=== PATIENT | male | born 1940 | race Caucasian/White ===

== ENCOUNTER → 2017-08-01 10:26 | Outpatient (CLI) | payer MEDICARE, OTHER, SELFPAY ==
[2017-08-01 12:26] LABS: PSA,Total- Diagnostic 0.97 ng/mL (0.0-4.0)
== END ==
PROVIDERS: Family Provider Family Medicine; PCP Family Medicine; Visit Provider Radiology Radiation Oncology
DX: Z85.46 Personal history of malignant neoplasm of prostate (principal)
CPT/HCPCS: 36415; 84153

== ENCOUNTER → 2019-10-04 07:47 | Outpatient (CLI) | payer MEDICARE, OTHER, SELFPAY ==
--- NOTE | 2019-10-04 08:00 | NM_ITS ---
CLINICAL: 79-year-old male with reported history of primary prostate carcinoma with elevation of the serum PSA level. WHOLE BODY 99m Tc MDP RADIONUCLIDE BONE SCINTIGRAPHY COMPARISON: None available FINDINGS: Following the intravenous administration of 26.0 mCi of 99m Tc MDP, whole body bone images reveal: 1. Increased radiopharmaceutical concentration is multifocally-heterogeneously defined throughout the axial skeletal structures, too many to individually articulate to include the right iliac crest, bilateral posterior ilium, multiple bilateral ribs, the left coracoid process and focally apparent in the left proximal humeral metaphysis. 2. Enhanced tracer distribution is defined in the first lumbar vertebra anteriorly-posteriorly on the left, acromioclavicular and sternoclavicular compartments of both shoulders, the right knee, bilateral hands. 3. The remaining skeletal structures are scintigraphically unremarkable with right kidney and urinary bladder activity identified. The left kidney is scintigraphically absent. NM/Bone Scan Whole Body IMPRESSION: 1. The increase in radiopharmaceutical concentration multifocally apparent in the axial skeleton and left proximal humerus is commensurate with osseous metastatic disease. 2. Degenerative arthritis appears expressed in the first lumbar vertebra, bilateral shoulders, right knee, both hands. Electronically Signed: Brant Pacheco DO at 20:32 EDT Tel , Service support ,
== END ==
PROVIDERS: PCP Family Medicine; Referring Provider Radiology Radiation Oncology; Visit Provider Radiology Radiation Oncology
DX: R97.20 Elevated prostate specific antigen [PSA] (principal); Z85.46 Personal history of malignant neoplasm of prostate
CPT/HCPCS: 78306

== ENCOUNTER → 2019-10-17 16:53 | Outpatient (CLI) | payer MEDICARE, OTHER, SELFPAY ==
[2019-10-17 18:21] LABS: Anion Gap 5 (5-15); BUN 24 mg/dL (7-18); Calcium,Total 9.1 mg/dL (8.5-10.1); Chloride 105 mmol/L (98-107); Creatinine, Serum 1.41 mg/dL (0.70-1.30); EST Glomerular Filtration Rate 52 mL/min (>60); Est Glom Filt Rate - Afr Amer 62 mL/min (>60); Glucose 86 mg/dL (74-106); Potassium 4.5 mmol/L (3.5-5.1); Sodium Level 137 mmol/L (136-145)
== END ==
PROVIDERS: PCP Family Medicine; Referring Provider Urology; Visit Provider Urology
DX: C61 Malignant neoplasm of prostate (principal)
CPT/HCPCS: 36415; 80048; 84153

== ENCOUNTER → 2019-10-24 12:41 | Outpatient (CLI) | payer MEDICARE, OTHER, SELFPAY ==
--- NOTE | 2019-10-24 12:45 | CT_ITS ---
STUDY: CT ABDOMEN AND PELVIS WITH AND WITHOUT CONTRAST REASON FOR EXAM: Male, 79 years old. PROSTATE CA, HX-RENAL CA-LT NEPHRECTOMY, PARTIAL COLECTOMY, HERNIA REPAIR X 3 RADIATION DOSAGE (If Supplied By Facility): CTDIvol = ( 10.21 ) mGy, DLP = ( 1102.07 ) mGycm TECHNIQUE: Transaxial images were obtained from the dome of the diaphragm to the symphysis pubis without oral contrast. IV 75mL [id number]-300 was administered. Sagittal and coronal images were reconstructed. Individualized dose optimization techniques were used for this CT. COMPARISON: Comparison is made with prior examination dated 04/18/2011. FINDINGS: Minimal increased markings at the lung bases suggestive of a minimal bibasilar atelectasis and/or mild scarring. Coronary artery calcification. Scattered calcified hepatic granulomas. Stable scattered subcentimeter hepatic cysts. Normal gallbladder and extrahepatic biliary system. There is a benign calcified granuloma of the spleen. Normal pancreas. Normal bilateral adrenal glands. There is a 5.1 cm x 4.8 cm cyst in the medial inferior aspect of the right kidney. Also evidence of a 3.1 cm x 2.57 m cyst in the lateral inferior aspect of the right kidney is also evidence of a right parapelvic cyst. The patient is status post left nephrectomy. Normal visualized stomach. Normal small intestine. There are scattered colonic diverticula consistent with diverticulosis. The appendix is visualized and appears normal. There is diffuse atherosclerotic calcification of the abdominal aorta and major visceral branches, without a demonstrated aneurysm. Normal inferior vena cava. Normal retroperitoneum. Normal urinary bladder. The prostate is not enlarged. Metallic radiation seeds are seen within the prostate bed. Normal abdominal wall. There now is evidence of multiple small sclerotic metastatic deposits seen in the visualized axial skeleton as well as the pelvic bones. CT/CT Abd/Pelvis W/WO Contrast IMPRESSION: Stable examination except for multiple sclerotic metastatic deposits in the visualized axial and appendicular skeletons. Electronically Signed: Gary Albert, at 13:37 EDT , Service support ,
== END ==
PROVIDERS: PCP Family Medicine; Referring Provider Urology; Visit Provider Urology
DX: C61 Malignant neoplasm of prostate (principal)
CPT/HCPCS: 74178; Q9967

== ENCOUNTER → 2019-11-22 09:02 | Outpatient (CLI) | payer MEDICARE, OTHER, SELFPAY ==
[2019-11-22 10:25] LABS: PSA,Total- Diagnostic 5.14 ng/mL (0.0-4.0)
== END ==
PROVIDERS: PCP Family Medicine; Referring Provider Urology; Visit Provider Urology
DX: C61 Malignant neoplasm of prostate (principal)
CPT/HCPCS: 36415; 84153; 84403

== ENCOUNTER → 2020-01-10 09:39 | Outpatient (CLI) | payer MEDICARE, OTHER, SELFPAY ==
[2020-01-10 11:14] LABS: Hematocrit 42.3 % (40-54); Hemoglobin 13.3 g/dL (13.0-16.5); Mean Corp Hgb Conc 31.4 g/dL (32-36); Mean Corpuscular Hgb 30.2 pg (27.0-32.0); Mean Corpuscular Volume 96.1 fL (80-94); Mean Platelet Vol. 10.2 fl (6.2-12.0); Platelet Count 251 K/mm3 (150-450); RBC Distribution Width CV 13.2 % (11.6-14.6); RBC Distribution Width SD 46.9 fl (35.1-43.9); White Blood Count 5.4 K/mm3 (4.4-11.0)
[2020-01-10 11:40] LABS: Anion Gap 5 (5-15); BUN 29 mg/dL (7-18); BUN/Creat Ratio 22.1 RATIO (10-20); Calcium,Total 9.5 mg/dL (8.5-10.1); Chloride 109 mmol/L (98-107); Creatinine, Serum 1.31 mg/dL (0.70-1.30); EST Glomerular Filtration Rate 56 mL/min (>60); Est Glom Filt Rate - Afr Amer 68 mL/min (>60); Glucose 86 mg/dL (74-106); Potassium 4.3 mmol/L (3.5-5.1); Sodium Level 141 mmol/L (136-145)
== END ==
PROVIDERS: PCP Family Medicine; Referring Provider Urology; Visit Provider Urology
DX: R97.20 Elevated prostate specific antigen [PSA] (principal); C79.51 Secondary malignant neoplasm of bone
CPT/HCPCS: 36415; 80048; 84153; 85027

== ENCOUNTER → 2020-03-03 10:43 | Outpatient (CLI) | payer MEDICARE, OTHER, SELFPAY ==
[2020-03-03 12:06] LABS: PSA,Total- Diagnostic 0.14 ng/mL (0.0-4.0)
== END ==
PROVIDERS: PCP Family Medicine; Referring Provider Urology; Visit Provider Urology
DX: C61 Malignant neoplasm of prostate (principal)
CPT/HCPCS: 36415; 84153

== ENCOUNTER → 2020-08-18 14:21 | Outpatient (CLI) | payer MEDICARE, OTHER, SELFPAY ==
[2020-08-18 14:47] LABS: Hematocrit 40.9 % (40-54); Hemoglobin 13.2 g/dL (13.0-16.5); Mean Corp Hgb Conc 32.3 g/dL (32-36); Mean Platelet Vol. 9.9 fl (6.2-12.0); Platelet Count 328 K/mm3 (150-450); RBC Distribution Width CV 13.2 % (11.6-14.6); RBC Distribution Width SD 46.5 fl (35.1-43.9); Red Blood Count 4.26 M/mm3 (4.6-6.2); White Blood Count 10.4 K/mm3 (4.4-11.0)
[2020-08-18 15:20] LABS: Anion Gap 6 (5-15); BUN 26 mg/dL (7-18); BUN/Creat Ratio 19.7 RATIO (10-20); Calcium,Total 9.5 mg/dL (8.5-10.1); Chloride 107 mmol/L (98-107); Creatinine, Serum 1.32 mg/dL (0.70-1.30); EST Glomerular Filtration Rate 56 mL/min (>60); Est Glom Filt Rate - Afr Amer 67 mL/min (>60); Glucose 100 mg/dL (74-106); Potassium 4.2 mmol/L (3.5-5.1); Sodium Level 138 mmol/L (136-145)
== END ==
PROVIDERS: PCP Family Medicine; Referring Provider Urology; Visit Provider Urology
DX: C61 Malignant neoplasm of prostate (principal)
CPT/HCPCS: 36415; 80048; 84153; 85027

== ENCOUNTER 2020-09-16 13:04 | Emergency (ER) | payer MEDICARE, OTHER, SELFPAY ==
[2020-09-16 13:05] VITALS: PULSE 95; RESP 16; TEMP 36.7; O2SAT 95; BMI 27.0
[2020-09-16 13:11] VITALS: BP 140/64; PULSE 92; RESP 18; O2SAT 96
--- NOTE | 2020-09-16 13:54 | CT_ITS ---
STUDY: CT BRAIN WITHOUT CONTRAST REASON FOR EXAM: Male, 80 years old. Head injury RADIATION DOSAGE (If Supplied By Facility): CTDIvol = ( 44.99 ) mGy, DLP = ( 745.49 ) mGycm TECHNIQUE: Transaxial CT imaging of the brain was performed without administration of intravenous contrast material. Individualized dose optimization techniques were used for this CT. COMPARISON: No relevant priors. FINDINGS: Normal soft tissue structures. Normal calvarium. Normal size ventricles and extra-axial spaces for the patient''s age. Normal white matter tracts of the cerebral hemispheres. Normal basal ganglia and thalami. Normal brainstem. Normal cerebellum. There is no intracranial hemorrhage. There are no findings of an acute ischemic infarction. Normal visualized paranasal sinuses. There are atherosclerotic changes involving the carotid arteries. CT/Brain/Head without Contrast IMPRESSION: Normal unenhanced CT scan of the brain. Electronically Signed: Haily Cochran, at 14:30 EDT Tel , Service support ,
[2020-09-16 16:12] VITALS: BP 144/67; RESP 18
--- NOTE | 2020-09-16 18:55 | ED.VIS.FALL ---
HPI HPI - Fall History of Present Illness Chief Complaint: Fall Informant: patient Occured/Mechanism Occurred: Today Mechanism/Context: Yes same level fall and Yes cannot recall fall Usually ambulates: Cane Pain/Injury Pain Location: head Quality of Pain: Dull Associated Symptoms Associated Symptoms: Negative for Parasthesias and Loss of consciousness Narrative Narrative: Patient presents after a fall that occurred today. Patient is unsure what caused the fall. Patient has a history of dementia and is a poor historian. Patient thinks he just lost his balance and fell forward. Patient states that sometimes he walks with a cane. Patient denies any loss of consciousness. Patient denies any paresthesias or weakness. Patient hit his forehead. Currently, patient denies any pain. PFSH [facility] Medical History Dementia Depression MARIAJOSE (generalized anxiety disorder) Hyperlipidemia Osteoarthritis Prostate neoplasm Allergy/AdvReac Type Severity Reaction Status Date / Time No Known Allergies Allergy Verified 09/16/20 13:11 Social History Smoking Status: Never smoker ROS ROS ED Constitutional Constitutional ED: Denies chills or fever(s) Eyes Eyes: Denies blurry vision or change in vision ENT ENT ED: Denies rhinorrhea or sore throat Cardiovascular Cardiovascular: Denies chest pain or palpitations Respiratory/Chest Respiratory/Chest: Denies cough or dyspnea Gastrointestinal Gastrointestinal: Denies nausea or vomiting Genitourinary Genitourinary ED: Denies dysuria or hematuria Musculoskeletal Musculoskeletal: Denies back pain or neck pain Integumentary Reports Abrasions; Denies abscess or rash Neurologic Neurologic: Denies headache(s) or weakness Allergic/Immunologic Allergic/Immunologic ED: Denies mouth swelling or urticaria EXAM Physical Exam Const Vital Signs: 09/16/20 13:05 09/16/20 13:11 09/16/20 16:12 Temperature 98.0 F Temperature Source Temporal Pulse Rate 95 92 Respiratory Rate 16 18 18 Respiratory Effort Normal Respiratory Depth Normal Respiratory Pattern Normal Blood Pressure 140/64 H 144/67 H Blood Pressure Mean 89 Pulse Ox 95 96 Oxygen Delivery Method Room Air Room Air Positive well nourished and well developed General Appearance ED: well developed HEENT HEENT Narrative: There is a superficial abrasion over the frontal scalp. There is no bleeding. There is no bony crepitance or step-off. There is no hematoma. Eyes PERRL and EOMs intact bilaterally Neck full ROM and supple Resp normal respiratory effort and clear to auscultation bilaterally Cardio regular rate and regular rhythm GI non-tender Palpation: soft Neuro CN's II-XII intact bilaterally, moves all extremities, no focal motor deficits and no sensory deficits noted Sensorium / Orientation: alert and oriented to person MDM MDM MDM Narrative Medical decision making narrative: CT scan of the brain was obtained. There is no acute intracranial abnormality. Patient was instructed to use ice to the area. Patient was instructed to keep wound clean and dry. Patient was given head injury instructions. Patient was instructed to follow-up with his primary care physician in 5 to 7 days. All questions were answered. Radiography Diagnostic Testing: Radiology Impression Brain CT 09/16/20 13:54 IMPRESSION: Normal unenhanced CT scan of the brain. Electronically Signed: Haily Cochran, at 14:30 EDT Tel , Service support , Discharge Plan Triage Chief Complaint: Fall ED Provider: Colt Ray Dx/Rx/DC Orders Clinical Impression: Closed head injury Instructions: ED Head Injury (Adult) Primary Care Provider: Roberto Alva Referrals: Roberto Alva MD [Primary Care Provider] - 5-7 Days Disposition Disposition: Home, Self Care Discharge Date/Time: 09/16/20 16:13
== END 2020-09-16 16:13 | disposition home or self-care (01) ==
PROVIDERS: Emergency Provider Emergency Medicine; PCP Family Medicine
DX: S00.01XA Abrasion of scalp, initial encounter (principal); W01.0XXA Fall on same level from slipping, tripping and stumbling without subsequent striking against object, initial encounter; Y93.9 Activity, unspecified; Y92.9 Unspecified place or not applicable; E78.5 Hyperlipidemia, unspecified; F03.90 Unspecified dementia, unspecified severity, without behavioral disturbance, psychotic disturbance, mood disturbance, and anxiety; F32.9 Major depressive disorder, single episode, unspecified; M19.90 Unspecified osteoarthritis, unspecified site; F41.1 Generalized anxiety disorder; Z79.899 Other long term (current) drug therapy
CPT/HCPCS: 70450; 99284

== ENCOUNTER 2020-11-07 07:58 | Emergency (ER) | payer MEDICARE, OTHER, SELFPAY ==
[2020-11-07 07:59] VITALS: BP 157/81; PULSE 75; RESP 17; TEMP 36.8; O2SAT 94; BMI 26.5
[2020-11-07 08:07] VITALS: O2SAT 96
--- NOTE | 2020-11-07 08:28 | CT_ITS ---
EXAM: CT HEAD WITHOUT INTRAVENOUS CONTRAST CLINICAL INDICATION: Fall and struck head injury. TECHNIQUE: Multiple axial images were obtained of the head without intravenous contrast. This CT exam was performed using one or more of the following dose reduction techniques: automated exposure control, adjustment of the mA and/or kV according to patient size, and/or use of iterative reconstruction technique. This report was created using [employer] report generation technology. COMPARISON: CT head without contrast 09/16/2020. FINDINGS: BRAIN AND EXTRA-AXIAL SPACES: Unremarkable. No intra- or extra-axial hemorrhage. No evidence of acute infarct. No intracranial mass or mass effect. There is preservation of the pina/white matter interface. Posterior fossa structures are unremarkable. Ventricles are appropriate for age. No hydrocephalus. Basal cisterns are patent. BONES/JOINTS: Unremarkable. No discrete lytic or blastic abnormalities. VASCULATURE: Calcified plaques in the cavernous segments and supraclinoid segments of both internal carotid arteries. SINUSES: Unremarkable as visualized. Clear. MASTOID AIR CELLS: Unremarkable. Clear. ORBITS: Visualized globes, extraocular muscles, optic nerves and retrobulbar fat appear unremarkable. CT/Brain/Head without Contrast IMPRESSION: No acute findings in the head/brain and unchanged since 09/16/2020. Electronically Signed: Yifan Alva MD at 9:17 EDT , Service support ,
--- NOTE | 2020-11-07 08:28 | CT_ITS ---
We are attempting to reach an attending provider to discuss findings. An addendum with communication details will be sent when the communication is complete. EXAM: CT CERVICAL SPINE WITHOUT INTRAVENOUS CONTRAST CLINICAL INDICATION: Fall injury and struck head. TECHNIQUE: Helically acquired images were obtained of the cervical spine without intravenous contrast. 2D reformatted images were reviewed. This CT exam was performed using one or more of the following dose reduction techniques: automated exposure control, adjustment of the mA and/or kV according to patient size, and/or use of iterative reconstruction technique. This report was created using [employer] report [employer] technology. COMPARISON: None. FINDINGS: VERTEBRAE: Intact metallic plate and transfixing screws from prior ACDF of C3 down to C7. Minimal anterior wedging of T1 vertebral body is from remote injury. Multiple sclerotic bone metastatic disease throughout the osseous elements of the cervical spine and the included upper thoracic spine at T1, T2 on T3. DISCS/SPINAL CANAL/NEURAL FORAMINA: Pronounced degenerative narrowing of the predental space. Normal lateral atlantoaxial articulations. SOFT TISSUES: Unremarkable. No prevertebral soft tissue swelling. LYMPH NODES: Unremarkable. No cervical adenopathy. LUNG APICES: Unremarkable as visualized. Clear. CT/Spine Cervical without Contras IMPRESSION: 1. No CT evidence of acute fracture or malalignment of the cervical spine and the craniocervical junction. 2. Minimal old anterior wedge compression fracture of the T1 vertebral body. 3. Diffuse sclerotic bone metastatic disease throughout the cervical spine and the included upper thoracic spine. Please correlate with PSA findings. Whole-body scintigraphy will help determine the extent of skeletal metastases. Electronically Signed: Yifan Alva MD at 9:21 EDT , Service support ,
--- NOTE | 2020-11-07 08:41 | EDS_ITS ---
HPI HPI - Fall History of Present Illness Chief Complaint: Fall Informant: patient Narrative Narrative: Patient is a 80-year-old male with a past medical history of dementia who presents to the emergency department for unwitnessed fall. Patient does remember falling but cannot remember what caused him to fall. He denies losing consciousness but he did strike his head. He is a small hematoma to the top of his scalp. He denies any significant headache, vision change. He denies injuring anything else including any neck or back pain. No chest pain or shortness of breath. No abdominal pain or nausea/vomiting. No leg or arm pain. He is not on any blood thinning medications. [facility] Medical History Dementia Depression MARIAJOSE (generalized anxiety disorder) Hyperlipidemia Osteoarthritis Prostate neoplasm Home Medications diphenhydramine-acetaminophen [Acetaminophen PM] 1 tab PO QHS 11/07/20 [History Last Taken Unknown] enzalutamide [Xtandi] 40 mg PO DAILY 11/07/20 [History Last Taken Unknown] meloxicam 15 mg PO DAILY 11/07/20 [History Last Taken Unknown] sertraline 50 mg PO DAILY 11/07/20 [History Last Taken Unknown] Allergy/AdvReac Type Severity Reaction Status Date / Time No Known Allergies Allergy Verified 11/07/20 08:06 Social History Smoking Status: Never smoker ROS ROS ED Constitutional Constitutional ED: Denies chills or fever(s) Eyes Eyes: Denies change in vision ENT ENT ED: Denies epistaxis Cardiovascular Cardiovascular: Denies chest pain Respiratory/Chest Respiratory/Chest: Denies cough or dyspnea Gastrointestinal Gastrointestinal: Denies abdominal pain, nausea or vomiting Musculoskeletal Musculoskeletal: Denies back pain or neck pain Integumentary Denies rash Neurologic Neurologic: Denies dizziness, headache(s) or weakness EXAM Physical Exam Const Vital Signs: 11/07/20 07:59 11/07/20 08:07 11/07/20 10:46 Temperature 98.3 F Temperature Source Oral Pulse Rate 75 Respiratory Rate 17 16 Respiratory Effort Normal Non-Labored Respiratory Depth Normal Respiratory Pattern Normal Blood Pressure 157/81 H 143/78 H Blood Pressure Mean 106 Pulse Ox 94 96 98 Oxygen Delivery Method Room Air Room Air Positive well nourished and well developed General Appearance ED: well developed and NAD HEENT Reports normocephalic and moist mucous membranes HEENT Narrative: Small hematoma to apex of scalp. Eyes PERRL and EOMs intact bilaterally Neck supple General: Negative for tenderness Chest Wall inspection of chest normal Resp normal respiratory effort and clear to auscultation bilaterally Auscultation: Negative for rales, rhonchi or wheezes Cardio regular rate, regular rhythm and no murmurs GI normal to inspection, nondistended, normoactive bowel sounds and non-tender Palpation: soft; Negative for guarding or rebound tenderness present Extremity normal to inspection General Extremety ED: Negative for edema or tenderness General Extremity: Negative for edema Neuro Sensorium / Orientation: alert Motor Exam: strength 5/5 throughout Psych mental status grossly normal Skin no rashes or lesions noted MDM MDM MDM Narrative Medical decision making narrative: Patient presents to the emergency department for unwitnessed fall at intermediate. He does have a small hematoma to the top of his scalp so he was sent in for evaluation. Patient does not have any complaints. Will obtain CT scan of the head and cervical spine at this time. CT imaging did not reveal any acute traumatic findings. Unfortunately there was evidence of bony sclerotic lesions concerning for metastatic prostate cancer. He does have a history of prostate cancer. I spoke with the patient's power of employee benefits attorney, Boy his son who states that they did have done hormonal therapy but they were not going to do any radiation or chemo for him given his medical issues. They are to follow-up with his PCP. They can have a full body scan done if they want to evaluate the extent of this but again if they previously did not recommend significant treatment I doubt that they will perform any heroic measures at this time. This was all discussed with the son. I did inform the patient of the findings but I unsure of how much she comprehended of this given his dementia. He otherwise has remained stable throughout ED stay. Will transfer back to living facility at this time. Radiography Diagnostic Testing: Radiology Impression Brain CT 11/07/20 08:28 IMPRESSION: No acute findings in the head/brain and unchanged since 09/16/2020. Electronically Signed: Yifan Alva MD at 9:17 EDT , Service support , Cervical Spine CT 11/07/20 08:28 IMPRESSION: 1. No CT evidence of acute fracture or malalignment of the cervical spine and the craniocervical junction. 2. Minimal old anterior wedge compression fracture of the T1 vertebral body. 3. Diffuse sclerotic bone metastatic disease throughout the cervical spine and the included upper thoracic spine. Please correlate with PSA findings. Whole-body scintigraphy will help determine the extent of skeletal metastases. Electronically Signed: Yifan Alva MD at 9:21 EDT , Service support , ADDENDUM: 11/07/20 0930 IMPRESSION: 1. No CT evidence of acute fracture or malalignment of the cervical spine and the craniocervical junction. 2. Minimal old anterior wedge compression fracture of the T1 vertebral body. 3. Diffuse sclerotic bone metastatic disease throughout the cervical spine and the included upper thoracic spine. Please correlate with PSA findings. Whole-body scintigraphy will help determine the extent of skeletal metastases. N.B. : The above Results were Read Back by Yifan Alva MD to TATO JACOBSEN MD, and understanding confirmed on 11/07/2020 09:23:33 (ET). Electronically Signed: Yifan Alva MD at 9:21 EDT , Service support , Discharge Plan Triage Chief Complaint: Fall ED Provider: Tato Jacobsen Dx/Rx/DC Orders Clinical Impression: Closed head injury, Bony metastasis Instructions: ED Fall with Uncertain Cause Prescriptions: No Action meloxicam 15 mg Tablet 15 mg PO DAILY RF: 0 diphenhydramine-acetaminophen [Acetaminophen PM] 25-500 mg Tablet 1 tab PO QHS RF: 0 sertraline 50 mg tablet 50 mg PO DAILY RF: 0 Xtandi 40 mg Capsule 40 mg PO DAILY RF: 0 Primary Care Provider: Roberto Alva Referrals: Roberto Alva MD [Primary Care Provider] - 2 Days Disposition Disposition: Home, Self Care Discharge Date/Time: 11/07/20 10:58
[2020-11-07 10:46] VITALS: BP 143/78; RESP 16; O2SAT 98
--- NOTE | 2020-11-07 10:55 | ED.RN ---
PT AND PT FAMILY MEMBER EDUCATED ON WRITTEN AND VERBAL DISCHARGE INSTRUCTIONS. THIS RN ATTEMPTED TO CALL REPORT TO [facility], WAS ON HOLD FOR 5 MIN. NOT ABLE TO GIVE D/C, REPORTS.
== END 2020-11-07 10:58 | disposition home or self-care (01) ==
PROVIDERS: Emergency Provider Emergency Medicine; PCP Family Medicine
DX: S00.03XA Contusion of scalp, initial encounter (principal); C79.51 Secondary malignant neoplasm of bone; C61 Malignant neoplasm of prostate; W19.XXXA Unspecified fall, initial encounter; Y93.9 Activity, unspecified; Y92.129 Unspecified place in nursing home as the place of occurrence of the external cause; F32.9 Major depressive disorder, single episode, unspecified; F41.1 Generalized anxiety disorder; M19.90 Unspecified osteoarthritis, unspecified site; F03.90 Unspecified dementia, unspecified severity, without behavioral disturbance, psychotic disturbance, mood disturbance, and anxiety; Z79.899 Other long term (current) drug therapy
CPT/HCPCS: 70450; 72125; 99284

== ENCOUNTER → 2020-11-18 05:00 | Outpatient (REF) | payer MEDICARE, OTHER, SELFPAY ==
[2020-11-18 07:32] LABS: Hemoglobin 12.6 g/dL (13.0-16.5); Mean Corp Hgb Conc 32.3 g/dL (32-36); Mean Corpuscular Hgb 30.6 pg (27.0-32.0); Mean Corpuscular Volume 94.7 fL (80-94); Mean Platelet Vol. 10.7 fl (6.2-12.0); Platelet Count 206 K/mm3 (150-450); RBC Distribution Width CV 12.9 % (11.6-14.6); RBC Distribution Width SD 44.6 fl (35.1-43.9); Red Blood Count 4.12 M/mm3 (4.6-6.2)
[2020-11-18 08:02] LABS: ALB/GLOB Ratio 0.9 RATIO (0.9-2.4); AST(SGOT) 24 U/L (15-37); Alanine Aminotransfer ALT/SGPT 33 U/L (16-61); Albumin, Serum 3.4 g/dL (3.2-5.0); Alkaline Phosphatase 116 U/L (45-117); Anion Gap 5 (5-15); BUN 29 mg/dL (7-18); BUN/Creat Ratio 28.2 RATIO (10-20); Calcium,Total 9.7 mg/dL (8.5-10.1); Chloride 109 mmol/L (98-107); Creatinine, Serum 1.03 mg/dL (0.70-1.30); EST Glomerular Filtration Rate 74 mL/min (>60); Est Glom Filt Rate - Afr Amer 89 mL/min (>60); Globulin 3.8 g/dL (2.2-4.2); Glucose 88 mg/dL (74-106); Potassium 3.9 mmol/L (3.5-5.1); Protein, Total 7.2 g/dL (6.4-8.2); Sodium Level 140 mmol/L (136-145)
== END ==
LOC: OLS.BROOKB 05:00
PROVIDERS: PCP Family Medicine; Referring Provider Family Medicine; Visit Provider Family Medicine
DX: F03.90 Unspecified dementia, unspecified severity, without behavioral disturbance, psychotic disturbance, mood disturbance, and anxiety (principal)
CPT/HCPCS: 36415; 80053; 85027

== ENCOUNTER → 2020-11-19 11:12 | Outpatient (REF) | payer MEDICARE, OTHER, SELFPAY ==
[2020-11-19 11:50] LABS: Bacteria 0 SEEN /hpf (None Seen); Mucous, Urine 0 SEEN /hpf (<or=2+); Squamous Epithelial Cells - UA 0 SEEN /hpf (0-5); White Blood Cells 0 SEEN /hpf (0-5)
[2020-11-19 12:14] LABS: Color, Urine Yellow (Yellow); Glucose, Dipstick Normal (Normal); Ketone-Dipstick Negative (Negative); Leukocyte Esterase-Dipstick Negative /ul (Negative); Nitrite-Dipstick Negative (Negative); Occult Blood-Urine Negative /ul (Negative); Protein-Dipstick 15 mg/dl (Negative); Urine Bilirubin Dipstick Negative (Negative); Urine Clarity Clear (Clear); Urine Urobilinogen Normal (Normal)
[2020-11-19 12:50] LABS: Red Blood Cells-Urine 0-5 SEEN /hpf (0-5)
== END ==
LOC: OLS.BROOKB 11:12
PROVIDERS: PCP Family Medicine; Visit Provider Family Medicine
DX: F03.90 Unspecified dementia, unspecified severity, without behavioral disturbance, psychotic disturbance, mood disturbance, and anxiety (principal); R29.6 Repeated falls; N39.0 Urinary tract infection, site not specified
CPT/HCPCS: 81001; 87086

== ENCOUNTER → 2020-12-14 10:30 | Outpatient (CLI) | payer MEDICARE, OTHER, SELFPAY ==
[2020-12-14 12:35] LABS: PSA,Total- Diagnostic 0.05 ng/mL (0.0-4.0)
== END ==
PROVIDERS: PCP Family Medicine; Referring Provider Urology; Visit Provider Urology
DX: C61 Malignant neoplasm of prostate (principal)
CPT/HCPCS: 36415; 84153

== ENCOUNTER 2020-12-16 11:37 | Emergency (ER) | payer MEDICARE, OTHER, SELFPAY ==
[2020-12-16 11:38] VITALS: BP 153/81; PULSE 72; RESP 18; TEMP 36.6; O2SAT 95; BMI 27.8
--- NOTE | 2020-12-16 11:46 | EDS_ITS ---
HPI History of Present Illness Chief Complaint: Fall Informant: patient Narrative Narrative: 80-year-old male with a history of dementia reportedly sustained a fall today at care facility. Was reported that he was complaining of pain on the back of his head. He denies any loss of consciousness. No report of being on blood thinner. Patient at the current time states he does not have any complaints [facility] Medical History Dementia Depression MARIAJOSE (generalized anxiety disorder) Hyperlipidemia Osteoarthritis Prostate neoplasm Home Medications diphenhydramine-acetaminophen [Acetaminophen PM] 1 tab PO QHS 11/07/20 [History Last Taken Unknown] enzalutamide [Xtandi] 40 mg PO DAILY 11/07/20 [History Last Taken Unknown] meloxicam 15 mg PO DAILY 11/07/20 [History Last Taken Unknown] sertraline 50 mg PO DAILY 11/07/20 [History Last Taken Unknown] Allergy/AdvReac Type Severity Reaction Status Date / Time No Known Allergies Allergy Verified 11/07/20 08:06 Social History (Updated 12/16/20 @ 11:[address] Keith Cornell DO) Smoking Status: Never smoker substance use type: does not use ROS ROS ED Constitutional Constitutional ED: Denies chills or weight loss Eyes Eyes: Denies change in vision or diplopia ENT ENT ED: Denies ear pain, rhinorrhea or sore throat Cardiovascular Cardiovascular: Denies chest pain, orthopnea, palpitations or racing heartbeat Respiratory/Chest Respiratory/Chest: Denies cough, dyspnea or orthopnea Gastrointestinal Gastrointestinal: Denies abdominal pain, diarrhea, nausea or vomiting Genitourinary Genitourinary ED: Denies dysuria, hematuria or urinary frequency Musculoskeletal Musculoskeletal: Denies arthralgias or myalgias Integumentary Denies abscess or rash Neurologic Neurologic: Denies headache(s) or weakness Psychiatric Psychiatric: Denies anxiety, depression, suicidal ideation or suicidal thoughts Endocrine Endocrinology: Denies polydipsia, polyphagia or polyuria Allergic/Immunologic Allergic/Immunologic ED: Denies mouth swelling, tongue swelling or urticaria EXAM Physical Exam Const Vital Signs: 12/16/20 11:38 12/16/20 11:43 Temperature 97.8 F Temperature Source Temporal Pulse Rate 72 Respiratory Rate 18 Respiratory Effort Normal Non-Labored Respiratory Depth Normal Respiratory Pattern Normal Blood Pressure 153/81 H Blood Pressure Mean 105 Pulse Ox 95 Oxygen Delivery Method Room Air Room Air Positive well nourished and well developed General Appearance ED: well developed HEENT Reports normocephalic, head/scalp atraumatic, TM's clear and moist mucous membranes HEENT Narrative: Oral pharyngeal exam normal atraumatic Tympanic Membrane ED: Yes TM's clear Eyes PERRL and EOMs intact bilaterally Neck no lymphadenopathy, supple and no JVD Resp normal respiratory effort and clear to auscultation bilaterally Cardio regular rate, regular rhythm and no murmurs GI normal to inspection, nondistended, normoactive bowel sounds and non-tender Palpation: soft Back/Spine no CVA tenderness and normal ROM Extremity normal to inspection General Extremety ED: Negative for edema General Extremity: Negative for edema Neuro CN's II-XII intact bilaterally Sensorium / Orientation: alert, oriented to person and oriented to place; Negative for oriented to time Motor Exam: strength 5/5 throughout Psych mental status grossly normal Mood & Affect: Negative for depressed or tearful Skin no rashes or lesions noted and no wounds MDM MDM MDM Narrative Medical decision making narrative: CT the brain was obtained. This was negative. Patient will be discharged back to [facility]. Radiography Diagnostic Testing: Radiology Impression Brain CT 12/16/20 11:52 IMPRESSION: Chronic involutional changes of the brain. Electronically Signed: Gary Albert MD at 12:19 EDT , Service support , Discharge Plan Triage Chief Complaint: Fall ED Provider: Keith Cornell Dx/Rx/DC Orders Clinical Impression: Fall, Head injury Instructions: ED Head Injury (Adult) Prescriptions: No Action meloxicam 15 mg Tablet 15 mg PO DAILY RF: 0 diphenhydramine-acetaminophen [Acetaminophen PM] 25-500 mg Tablet 1 tab PO QHS RF: 0 sertraline 50 mg tablet 50 mg PO DAILY RF: 0 Xtandi 40 mg Capsule 40 mg PO DAILY RF: 0 Primary Care Provider: Roberto Alva Referrals: Roberto Alva MD [Primary Care Provider] - As Needed Disposition Disposition: [facility] Facility Discharge Location: [facility]
--- NOTE | 2020-12-16 11:52 | CT_ITS ---
STUDY: CT BRAIN WITHOUT CONTRAST REASON FOR EXAM: Male, 80 years old. Head injury.. RADIATION DOSAGE (If Supplied By Facility): CTDIvol = ( 44.99 ) mGy, DLP = ( 829.85 ) mGycm TECHNIQUE: Transaxial CT imaging of the brain was performed without administration of intravenous contrast material. Individualized dose optimization techniques were used for this CT. COMPARISON: Comparison is made with prior study dated 11/07/2020. FINDINGS: Normal soft tissue structures. Normal calvarium. There is mild cerebral atrophy with widening of the extra-axial spaces and ventricular dilatation. There are areas of decreased attenuation within the white matter tracts of the supratentorial brain, consistent with microvascular disease changes. Normal basal ganglia and thalami. Normal brainstem. Normal cerebellum. There is no intracranial hemorrhage. There are no findings of an acute ischemic infarction. Minimal mucosal thickening along the posterior aspect of the left maxillary sinus. CT/Brain/Head without Contrast IMPRESSION: Chronic involutional changes of the brain. Electronically Signed: Gary Albert MD at 12:19 EDT , Service support ,
--- NOTE | 2020-12-16 13:01 | NURSING ---
CALLED JOHN, TALKED TO GABBIE. ETA IS 90 MIN
--- NOTE | 2020-12-16 13:45 | ED.RN ---
nurse to nurse called to chele carreno
== END 2020-12-16 13:45 | disposition skilled nursing facility (03) ==
LOC: ED 12:40
PROVIDERS: Emergency Provider Emergency Medicine; PCP Family Medicine
DX: S09.90XA Unspecified injury of head, initial encounter (principal); W19.XXXA Unspecified fall, initial encounter; Y92.9 Unspecified place or not applicable; Y93.9 Activity, unspecified; E78.5 Hyperlipidemia, unspecified; F03.90 Unspecified dementia, unspecified severity, without behavioral disturbance, psychotic disturbance, mood disturbance, and anxiety; F41.1 Generalized anxiety disorder; F32.9 Major depressive disorder, single episode, unspecified; M19.90 Unspecified osteoarthritis, unspecified site; Z79.899 Other long term (current) drug therapy
CPT/HCPCS: 70450; 99284

== ENCOUNTER 2020-12-19 15:41 | Emergency (ER) | payer MEDICARE, OTHER, SELFPAY ==
[2020-12-19 15:42] VITALS: BP 118/96; PULSE 75; RESP 18; TEMP 36.1; O2SAT 99; BMI 25.0
--- NOTE | 2020-12-19 17:17 | CT_ITS ---
STUDY: CT BRAIN WITHOUT CONTRAST REASON FOR EXAM: Male, 80 years old. fall RADIATION DOSAGE (If Supplied By Facility): CTDIvol = ( 44.99 ) mGy, DLP = ( 745.49 ) mGycm TECHNIQUE: Transaxial CT imaging of the brain was performed without administration of intravenous contrast material. Individualized dose optimization techniques were used for this CT. COMPARISON: 12/16/2020 FINDINGS: Normal soft tissue structures. Normal calvarium. There is mild cerebral atrophy with widening of the extra-axial spaces and ventricular dilatation. There are areas of decreased attenuation within the white matter tracts of the supratentorial brain, consistent with microvascular disease changes. Normal basal ganglia and thalami. Normal brainstem. Normal cerebellum. There is no intracranial hemorrhage. There are no findings of an acute ischemic infarction. Normal visualized paranasal sinuses. CT/Brain/Head without Contrast IMPRESSION: No acute intracranial hemorrhage or mass effect. Electronically Signed: Brooks Suazo MD (Brooks) at 18:07 EDT , Service support ,
--- NOTE | 2020-12-19 17:18 | EDS_ITS ---
HPI History of Present Illness Chief Complaint: Fall Informant: patient and family Narrative Narrative: 80-year-old male presenting after fall. Patient was trying to change his clothes, lost his balance and fell. He hit his head on the trash can. He did not lose consciousness. He is not on anticoagulants. He has a left posterior scalp laceration. He denies other complaints. He was able to ambulate after the fall. [facility] Medical History Dementia Depression MARIAJOSE (generalized anxiety disorder) Hyperlipidemia Osteoarthritis Prostate neoplasm Home Medications diphenhydramine-acetaminophen [Acetaminophen PM] 1 tab PO QHS 11/07/20 [History Last Taken Unknown] enzalutamide [Xtandi] 40 mg PO DAILY 11/07/20 [History Last Taken Unknown] meloxicam 15 mg PO DAILY 11/07/20 [History Last Taken Unknown] sertraline 50 mg PO DAILY 11/07/20 [History Last Taken Unknown] Allergy/AdvReac Type Severity Reaction Status Date / Time No Known Allergies Allergy Verified 11/07/20 08:06 Social History (Updated 12/16/20 @ 11:[address] Keith Cornell DO) Smoking Status: Never smoker substance use type: does not use ROS ROS ED Review of Systems ROS Unobtainable: due to mental condition Constitutional Constitutional ED: Denies fever(s) Eyes Eyes: Denies change in vision Cardiovascular Cardiovascular: Denies chest pain Respiratory/Chest Respiratory/Chest: Denies dyspnea Gastrointestinal Gastrointestinal: Denies vomiting Musculoskeletal Musculoskeletal: Denies myalgias Integumentary Denies rash Neurologic Neurologic: Denies headache(s) EXAM Physical Exam Const Vital Signs: 12/19/20 15:42 12/19/20 17:31 Temperature 97 F L Temperature Source Temporal Pulse Rate 75 Respiratory Rate 18 Respiratory Effort Normal Non-Labored Blood Pressure 118/96 H Blood Pressure Mean 103 Pulse Ox 99 Positive well nourished and well developed General Appearance ED: well developed HEENT Reports normocephalic and head/scalp atraumatic HEENT Narrative: 2 cm left posterior scalp laceration Eyes PERRL and EOMs intact bilaterally Neck supple Neck Narrative: No midline tenderness, no step-off General: Negative for tenderness Chest Wall inspection of chest normal Resp normal respiratory effort and clear to auscultation bilaterally Cardio regular rate and regular rhythm GI non-tender and non-distended Palpation: soft; Negative for guarding or rebound tenderness present no CVA tenderness Extremity normal to inspection Neuro no sensory deficits noted Sensorium / Orientation: alert Motor Exam: strength 5/5 throughout Psych mental status grossly normal MDM MDM MDM Narrative Medical decision making narrative: Per family, tetanus is up-to-date. CT head shows no acute process. Laceration was cleansed. Anesthetized with lidocaine. 2 kalee were placed. Patient tolerated this well. Advised wound care instructions. Advised to follow-up with primary care physician. Advised return to ED for worsening complaints. Radiography Diagnostic Testing: Radiology Impression Brain CT 12/19/20 17:17 IMPRESSION: No acute intracranial hemorrhage or mass effect. Electronically Signed: Brooks Suazo MD (Brooks) at 18:07 EDT , Service support , Discharge Plan Triage Chief Complaint: Fall ED Provider: Phyllis Guadarrama Dx/Rx/DC Orders Clinical Impression: Closed head injury, Laceration of scalp Instructions: ED Head Injury (Adult), ED Laceration Scalp Stitches or [place] Prescriptions: No Action meloxicam 15 mg Tablet 15 mg PO DAILY RF: 0 diphenhydramine-acetaminophen [Acetaminophen PM] 25-500 mg Tablet 1 tab PO QHS RF: 0 sertraline 50 mg tablet 50 mg PO DAILY RF: 0 Xtandi 40 mg Capsule 40 mg PO DAILY RF: 0 Primary Care Provider: Roberto Alva Referrals: Roberto Alva MD [Primary Care Provider] - Disposition Disposition: Home, Self Care
--- NOTE | 2020-12-19 19:56 | ED.RN ---
UPDATED LEVY OBREGON ON DISPO OF PT.
[2020-12-19 20:01] VITALS: BP 152/84; RESP 18
[2020-12-19] MEDS: Lidocaine 1% (20 ml mdv) 20 ML Vial INFILT (20:02)
== END 2020-12-19 20:02 | disposition home or self-care (01) ==
PROVIDERS: Emergency Provider Emergency Medicine; PCP Family Medicine
DX: S01.01XA Laceration without foreign body of scalp, initial encounter (principal); W01.0XXA Fall on same level from slipping, tripping and stumbling without subsequent striking against object, initial encounter; Y93.9 Activity, unspecified; Y92.9 Unspecified place or not applicable; F41.1 Generalized anxiety disorder; E78.5 Hyperlipidemia, unspecified; F03.90 Unspecified dementia, unspecified severity, without behavioral disturbance, psychotic disturbance, mood disturbance, and anxiety; F32.9 Major depressive disorder, single episode, unspecified; M19.90 Unspecified osteoarthritis, unspecified site; Z79.899 Other long term (current) drug therapy
CPT/HCPCS: 12001; 70450; 99283

== ENCOUNTER 2021-01-05 05:37 | Inpatient (IN) | payer MEDICARE, OTHER, SELFPAY ==
[2021-01-05] VITALS (11 sets, daily range): BP systolic 133–161; BP diastolic 78–98; PULSE 66–121; RESP 16–18; TEMP 36.3–37.2; O2SAT 94–97; BMI 26.6; BMI 25.4
--- NOTE | 2021-01-05 05:46 | CT_ITS ---
STUDY: CT ABDOMEN AND PELVIS WITH CONTRAST REASON FOR EXAM: Male, 80 years old. diverticulitis RADIATION DOSAGE (If Supplied By Facility): CTDIvol = ( 26.86 ) mGy, DLP = ( 960.30 ) mGycm TECHNIQUE: Transaxial images were obtained from the dome of the diaphragm to the symphysis pubis without oral contrast. IV 100mL Isovue-370 was administered. Sagittal and coronal images were reconstructed. Individualized dose optimization techniques were used for this CT. COMPARISON: 10/24/2019 FINDINGS: The visualized lung bases are unremarkable. The visualized portions of the heart are within normal limits. Normal liver. Normal gallbladder and extrahepatic biliary system. Normal spleen. Normal pancreas. Normal bilateral adrenal glands. There are multiple right renal cysts, the largest measures 5.6 cm. Absent left kidney. Normal visualized stomach. Normal small intestine. Diverticulosis. The appendix is visualized and appears normal. Normal abdominal aorta. Normal inferior vena cava. Normal retroperitoneum. Normal urinary bladder. The prostate has been removed. Normal abdominal wall. Innumerable osteoblastic lesions are seen in the spine and ribs and pelvic bones consistent with metastatic disease. CT/Abdomen/Pelvis W IV Cont ONLY IMPRESSION: Descending colon and sigmoid diverticulosis without evidence of diverticulitis. Stable metastatic bone lesions without evidence of pathologic fracture. Electronically Signed: Tadeo Byrne MD at 7:49 EDT Tel , Service support ,
--- NOTE | 2021-01-05 05:46 | EKG12_ITS ---
Test Reason : GI BLEED Blood Pressure : / mmHG Vent. Rate : 081 BPM Atrial Rate : 081 BPM P-R Int : 170 ms QRS Dur : 090 ms QT Int : 368 ms P-R-T Axes : 066 000 029 degrees QTc Int : 427 ms Normal sinus rhythm Normal ECG Confirmed by BRAYDEN TREVINO, KAR ([id number]), purchasing expeditor ANNIKA VALLES ([id number]) on 01/06/2021 9:06:39 AM Referred By: PL Confirmed By:KAR OWEN MD
--- NOTE | 2021-01-05 05:49 | EDS_ITS ---
HPI <Dr. Russell Deras MD - Last Filed: 01/12/21 17:21> HPI - GI History of Present Illness Chief Complaint: GI Bleed Informant: patient and EMS Narrative Narrative: Patient is in a memory unit of long-term care facility and the history is limited due to dementia. He does state that he went to the bathroom and there was just blood. He cannot really elaborate a lot further than that. He thinks that he has never had this before. He denies having abdominal pain. He denies being on blood thinner but he says he has had no medical problems and is on no meds but is prescribed meds. He also denies surgery but he has a surgical scar. Review of his chart shows no blood thinners. However he is on enzalutamide as well as meloxicam. No indication of anything that makes symptoms better or worse. PFSH <Dr. Russell Deras MD - Last Filed: 01/12/21 17:21> [facility] Medical History Anxiety Dementia Depression MARIAJOSE (generalized anxiety disorder) Hyperlipidemia Osteoarthritis Prostate neoplasm Home Medications Xtandi 160 mg PO DAILY 11/07/20 [History Last Taken Unknown] diphenhydramine-acetaminophen [Acetaminophen PM] 1 tab PO QHS 11/07/20 [History Last Taken Unknown] sertraline 50 mg PO DAILY 11/07/20 [History Last Taken Unknown] Biofreeze (menthol) 1 applic TOPICAL 4X/DAY PRN PRN 01/05/21 [History Last Taken Unknown] acetaminophen 1,000 mg PO Q8H PRN 01/05/21 [History Last Taken Unknown] pantoprazole [Protonix] 40 mg PO DAILY #30 tab 01/06/21 [Rx Last Taken Unknown] Allergy/AdvReac Type Severity Reaction Status Date / Time No Known Allergies Allergy Verified 01/05/21 05:41 Social History Smoking Status: Never smoker substance use type: does not use ROS <Dr. Russell Deras MD - Last Filed: 01/12/21 17:21> ROS ED ROS Narrative History is somewhat limited due to dementia. Patient denies really all symptoms except red blood per rectum. Constitutional Constitutional ED: Denies fever(s) ENT ENT ED: Denies rhinorrhea Cardiovascular Cardiovascular: Denies chest pain Respiratory/Chest Respiratory/Chest: Denies cough or dyspnea Gastrointestinal Gastrointestinal: Reports other Details: See history of present illness. ; Denies abdominal pain, nausea or vomiting Genitourinary Genitourinary ED: Reports other Details: Possible history of prostate cancer based on medications. ; Denies hematuria Musculoskeletal Musculoskeletal: Denies back pain Integumentary Denies rash Neurologic Neurologic: Denies weakness Psychiatric Psychiatric: Denies depression Hematologic/Lymphatic Hematologic/Lymphatic: Denies easy bleeding or easy bruising EXAM <Dr. Russell Deras MD - Last Filed: 01/12/21 17:21> Physical Exam Const Vital Signs: 01/05/21 05:38 01/05/21 07:49 Temperature 99.0 F Temperature Source Oral Pulse Rate 98 79 Respiratory Rate 16 16 Blood Pressure 161/98 H 138/93 H Blood Pressure Mean 119 108 Pulse Ox 95 97 Oxygen Delivery Method Room Air Room Air Positive well nourished and well developed General Appearance ED: well developed and NAD; Negative for pallor HEENT normocephalic and atraumatic Eyes General Eye ED: Negative for pale conjunctiva or scleral icterus Neck supple Resp normal respiratory effort and clear to auscultation bilaterally Auscultation: Negative for rales, rhonchi or wheezes Cardio regular rate, regular rhythm and no murmurs GI non-tender and non-distended GI Narrative: I feel no pulsatile mass. Rectal exam does show red blood. There is also signs of red blood staining on his legs and feet that has been recently cleaned up. Patient does have a lower abdominal scar below the umbilicus. He is not sure what that was from. Palpation: soft Back/Spine no CVA tenderness Extremity full ROM General Extremety ED: Negative for edema General Extremity: Negative for edema Neuro Sensorium / Orientation: alert, oriented to person and oriented to place; Negative for oriented to time Psych mental status grossly normal Skin Skin Narrative: Despite his history, he did not does not look notably pale and is not diaphoretic. General Skin Exam: Negative for pallor Rashes: no rashes <Dr. Phyllis Guadarrama MD - Last Filed: 01/05/21 08:59> Physical Exam Const Vital Signs: 01/05/21 05:38 01/05/21 07:49 Temperature 99.0 F Temperature Source Oral Pulse Rate 98 79 Respiratory Rate 16 16 Blood Pressure 161/98 H 138/93 H Blood Pressure Mean 119 108 Pulse Ox 95 97 Oxygen Delivery Method Room Air Room Air [facility] <Dr. Russell Deras MD - Last Filed: 01/12/21 17:21> [facility] Lab Data Labs: Laboratory Results - last 24 hr 01/05/21 01/05/21 01/05/21 05:50 05:50 05:50 WBC 6.4 RBC 4.06 L Hgb 12.4 L Hct 38.0 L MCV 93.6 MCH 30.5 MCHC 32.6 RDW Std Deviation 46.8 H RDW Coeff of [place] 13.6 Plt Count 250 MPV 10.3 Immature Gran % (Auto) 0.300 Neut % (Auto) 78.5 H Lymph % (Auto) 12.1 L [place] % (Auto) 8.3 Eos % (Auto) 0.6 Baso % (Auto) 0.2 Absolute Neuts (auto) 5.0 Absolute Lymphs (auto) 0.77 L Nucleated RBC % 0 PT 13.9 INR 1.1 APTT 29.3 Sodium 140 Potassium 4.1 Chloride 105 Carbon Dioxide 27.0 Anion Gap 8 BUN 24 H Creatinine 1.18 Estim Creat Clear Calc 49.11 Est GFR (MDRD) Af Amer 76 Est GFR (MDRD) Non-Af 63 BUN/Creatinine Ratio 20.3 H Glucose 100 Lactic Acid Calcium 9.2 Magnesium Total Bilirubin 0.50 AST 20 ALT 28 Alkaline Phosphatase 113 Troponin I High Sens 17 Total Protein 7.3 Albumin 3.6 Globulin 3.7 Albumin/Globulin Ratio 1.0 Blood Type Antibody Screen 01/05/21 01/05/21 01/05/21 05:50 05:50 05:50 WBC RBC Hgb Hct MCV MCH MCHC RDW Std Deviation RDW Coeff of [place] Plt Count MPV Immature Gran % (Auto) Neut % (Auto) Lymph % (Auto) [place] % (Auto) Eos % (Auto) Baso % (Auto) Absolute Neuts (auto) Absolute Lymphs (auto) Nucleated RBC % PT INR APTT Sodium Potassium Chloride Carbon Dioxide Anion Gap BUN Creatinine Estim Creat Clear Calc Est GFR (MDRD) Af Amer Est GFR (MDRD) Non-Af BUN/Creatinine Ratio Glucose Lactic Acid 1.4 Calcium Magnesium 2.2 Total Bilirubin AST ALT Alkaline Phosphatase Troponin I High Sens Total Protein Albumin Globulin Albumin/Globulin Ratio Blood Type O POSITIVE Antibody Screen NEGATIVE Radiography Diagnostic Testing: Clinical Impression(s) from Imaging Studies Abdomen/Pelvis CT 01/05/21 05:46 IMPRESSION: Descending colon and sigmoid diverticulosis without evidence of diverticulitis. Stable metastatic bone lesions without evidence of pathologic fracture. Electronically Signed: Tadeo Byrne MD at 7:49 EDT Tel , Service support , EKG Initial EKG: Comments: EKG done as part of medical work-up and read by me shows sinus rhythm with overall rate of 81. No ectopy. No acute ST elevation or depression. AR interval, QRS duration and QTc normal. <Dr. Phyllis Guadarrama MD - Last Filed: 01/05/21 08:59> [facility] MDM Narrative Medical decision making narrative: Patient was signed out to me to check CT abdomen results. CT abdomen shows diverticulosis without evidence of diverticulitis. Stable metastatic bone lesions. He has remained hemodynamically stable. Discussed with Dr. Galvin and Dr. Fagan and patient will be admitted. Lab Data Attestation: I reviewed the patient's lab results. Labs: Laboratory Results - last 24 hr 01/05/21 01/05/21 01/05/21 05:50 05:50 05:50 WBC 6.4 RBC 4.06 L Hgb 12.4 L Hct 38.0 L MCV 93.6 MCH 30.5 MCHC 32.6 RDW Std Deviation 46.8 H RDW Coeff of [place] 13.6 Plt Count 250 MPV 10.3 Immature Gran % (Auto) 0.300 Neut % (Auto) 78.5 H Lymph % (Auto) 12.1 L [place] % (Auto) 8.3 Eos % (Auto) 0.6 Baso % (Auto) 0.2 Absolute Neuts (auto) 5.0 Absolute Lymphs (auto) 0.77 L Nucleated RBC % 0 PT 13.9 INR 1.1 APTT 29.3 Sodium 140 Potassium 4.1 Chloride 105 Carbon Dioxide 27.0 Anion Gap 8 BUN 24 H Creatinine 1.18 Estim Creat Clear Calc 49.11 Est GFR (MDRD) Af Amer 76 Est GFR (MDRD) Non-Af 63 BUN/Creatinine Ratio 20.3 H Glucose 100 Lactic Acid Calcium 9.2 Magnesium Total Bilirubin 0.50 AST 20 ALT 28 Alkaline Phosphatase 113 Troponin I High Sens 17 Total Protein 7.3 Albumin 3.6 Globulin 3.7 Albumin/Globulin Ratio 1.0 Blood Type Antibody Screen 01/05/21 01/05/21 01/05/21 05:50 05:50 05:50 WBC RBC Hgb Hct MCV MCH MCHC RDW Std Deviation RDW Coeff of [place] Plt Count MPV Immature Gran % (Auto) Neut % (Auto) Lymph % (Auto) [place] % (Auto) Eos % (Auto) Baso % (Auto) Absolute Neuts (auto) Absolute Lymphs (auto) Nucleated RBC % PT INR APTT Sodium Potassium Chloride Carbon Dioxide Anion Gap BUN Creatinine Estim Creat Clear Calc Est GFR (MDRD) Af Amer Est GFR (MDRD) Non-Af BUN/Creatinine Ratio Glucose Lactic Acid 1.4 Calcium Magnesium 2.2 Total Bilirubin AST ALT Alkaline Phosphatase Troponin I High Sens Total Protein Albumin Globulin Albumin/Globulin Ratio Blood Type O POSITIVE Antibody Screen NEGATIVE Radiography Diagnostic Testing: Clinical Impression(s) from Imaging Studies Abdomen/Pelvis CT 01/05/21 05:46 IMPRESSION: Descending colon and sigmoid diverticulosis without evidence of diverticulitis. Stable metastatic bone lesions without evidence of pathologic fracture. Electronically Signed: Tadeo Byrne MD at 7:49 EDT Tel , Service support , Discharge Plan Dx/Rx/DC Orders Clinical Impression: Acute GI bleeding Disposition Disposition: Acute Care Hospital [facility] Discharge Date/Time: 01/05/21 09:24
[2021-01-05 06:10] LABS: Absolute Lymphocyte Count 0.77 X10^3/uL (0.83-4.51); Basophil# 0.01 X10^3/uL; Basophil% 0.2 % (0-1); Eosinophil# 0.04 X10^3/uL; Eosinophils% 0.6 % (0-5); Hemoglobin 12.4 g/dL (13.0-16.5); Lymphocyte # 0.77 X10^3/ul (0.83-4.51); Lymphocyte % 12.1 % (19-41); Mean Corp Hgb Conc 32.6 g/dL (32-36); Mean Corpuscular Hgb 30.5 pg (27.0-32.0); Mean Corpuscular Volume 93.6 fL (80-94); Mean Platelet Vol. 10.3 fl (6.2-12.0); Monocyte# 0.53 X10^3/uL; Monocyte% 8.3 % (0-10); NRBC Flagged by Analyzer 0 % (0-5); Neutrophil # 4.98 X10^3/uL (2.7-7.7); Neutrophil % 78.5 % (47-70); Platelet Count 250 K/mm3 (150-450); RBC Distribution Width CV 13.6 % (11.6-14.6); RBC Distribution Width SD 46.8 fl (35.1-43.9); Red Blood Count 4.06 M/mm3 (4.6-6.2); White Blood Count 6.4 K/mm3 (4.4-11.0)
[2021-01-05 06:21] LABS: International Normalized Ratio 1.1; Prothrombin Time (Protime)PT. 13.9 SECONDS (11.7-14.9)
[2021-01-05 06:22] LABS: Partial Thromboplast Time 29.3 Seconds (24.1-36.2)
[2021-01-05 06:27] LABS: AST(SGOT) 20 U/L (15-37); Alanine Aminotransfer ALT/SGPT 28 U/L (16-61); Albumin, Serum 3.6 g/dL (3.2-5.0); Alkaline Phosphatase 113 U/L (45-117); Anion Gap 8 (5-15); BUN 24 mg/dL (7-18); BUN/Creat Ratio 20.3 RATIO (10-20); Calcium,Total 9.2 mg/dL (8.5-10.1); Chloride 105 mmol/L (98-107); Creatinine, Serum 1.18 mg/dL (0.70-1.30); EST Glomerular Filtration Rate 63 mL/min (>60); Est Glom Filt Rate - Afr Amer 76 mL/min (>60); Estimated Creatinine Clearance 49.11 ml/min; Globulin 3.7 g/dL (2.2-4.2); Glucose 100 mg/dL (74-106); Potassium 4.1 mmol/L (3.5-5.1); Protein, Total 7.3 g/dL (6.4-8.2); Sodium Level 140 mmol/L (136-145); Troponin-I HS 17 pg/mL (3.0-78.0)
[2021-01-05 06:45] LABS: Lactic Acid 1.4 mmol/L (0.4-1.9)
--- NOTE | 2021-01-05 08:14 | PCM.HP.STD ---
[facility] - General General Date of Admission: 01/05/21 HPI Narrative JOSÉ HERNÁNDEZ, is a 80 M with history of colon cancer, diagnosed 25 years ago seems in remission and prostate cancer on ADT was sent from [facility] for 2 episodes of bright red rectal bleed since last night. Patient does not have abdominal pain. Patient on meloxicam for arthritis. He also has dementia. He has mild nausea but denies vomiting, hematemesis. Denies any prior history of recent GI bleed or recent EGD or colonoscopy. Denies chest pain or shortness of breath. He has mild sometimes hesitancy and urinary incontinence probably from prostate cancer for which he is on hormonal therapy as mentioned above. In ED, heart rate and blood pressure are controlled. No hypoxia. Hemoglobin 12.4. PFS Medical History Anxiety Dementia Depression MARIAJOSE (generalized anxiety disorder) Hyperlipidemia Osteoarthritis Prostate neoplasm Home Medications diphenhydramine-acetaminophen [Acetaminophen PM] 1 tab PO QHS 11/07/20 [History Last Taken Unknown] enzalutamide [Xtandi] 40 mg PO DAILY 11/07/20 [History Last Taken Unknown] meloxicam 15 mg PO DAILY 11/07/20 [History Last Taken Unknown] sertraline 50 mg PO DAILY 11/07/20 [History Last Taken Unknown] acetaminophen 1,000 mg PO Q8H PRN 01/05/21 [History Last Taken Unknown] Allergy/AdvReac Type Severity Reaction Status Date / Time No Known Allergies Allergy Verified 01/05/21 05:41 Social History Smoking Status: Never smoker substance use type: does not use ROS ROS Narrative Constitutional: Reports fatigue and weakness. Dementia HEENT: Reports systems reviewed and no addt'l complaints, except as documented Respiratory/Chest: Denies chest pain, shortness of breath at rest or with exertion Gastrointestinal: As mentioned in HPI Genitourinary: Mild chronic urinary incontinence, hesitancy. Prostate cancer history. Musculoskeletal: Reports joint pain and limited range of motion. On walker. Recurrent fall about 3 times per year Neurologic: Denies seizure-like activity skin: No ulcer. No rash Endocrinology: Reports systems reviewed and no addt'l complaints, except as documented Hematologic/Lymphatic: Reports systems reviewed and no addt'l complaints, except as documented Rest 12 ROS are negative except as mentioned in HPI Vital Signs Vital Signs Vital Signs: 01/05/21 05:38 01/05/21 07:49 Temperature 99.0 F Temperature Source Oral Pulse Rate 98 79 Respiratory Rate 16 16 Blood Pressure 161/98 H 138/93 H Blood Pressure Mean 119 108 Pulse Ox 95 97 Oxygen Delivery Method Room Air Room Air Weight Weight: 175 lb 7.807 oz Body Mass Index (BMI) 26.6 Physical Exam Narrative General: Alert, Oriented x3, Cooperative HEENT: Atraumatic, PERRLA, EOMI, Normocephalic Oral: No Gingival or Mucosal Lesions/ Ulcerations Neck: Supple, No JVD, Negative Carotid Bruits Lungs: Air entry diminished in bilateral lung bases. No crepitation/rhonchi Cardiovascular: Regular rate, Regular Rhythm, Normal S1, Normal S2, No murmurs Abdomen: Bowel Sounds Present, Soft, Non Tender, Non-Distended : No renal angle tenderness. No suprapubic tenderness. Extremities: No edema, Capillary Refill Less than 3 Seconds Skin: No rashes, No breakdown Musculoskeletal: No Tenderness to Palpation of Joints or Extremities Neurological: Cranial nerves II-XII grossly intact, DTR 2+/4 and Symmetrical, Neuro grossly intact Psych/Mental Status: Flat affect. Increased reaction time, dementia. Results Lab / Micro Data Result Diagrams: 01/05/21 05:50 01/05/21 05:50 Labs: Laboratory Results - last 24 hr 01/05/21 05:50: WBC 6.4, RBC 4.06 L, Hgb 12.4 L, Hct 38.0 L, MCV 93.6, MCH 30.5, MCHC 32.6, RDW Std Deviation 46.8 H, RDW Coeff of [place] 13.6, Plt Count 250, MPV 10.3, Immature Gran % (Auto) 0.300, Neut % (Auto) 78.5 H, Lymph % (Auto) 12.1 L, [place] % (Auto) 8.3, Eos % (Auto) 0.6, Baso % (Auto) 0.2, Absolute Neuts (auto) 5.0, Absolute Lymphs (auto) 0.77 L, Nucleated RBC % 0 01/05/21 05:50: PT 13.9, INR 1.1, APTT 29.3 01/05/21 05:50: Sodium 140, Potassium 4.1, Chloride 105, Carbon Dioxide 27.0, Anion Gap 8, BUN 24 H, Creatinine 1.18, Estim Creat Clear Calc 49.11, Est GFR (MDRD) Af Amer 76, Est GFR (MDRD) Non-Af 63, BUN/Creatinine Ratio 20.3 H, Glucose 100, Calcium 9.2, Total Bilirubin 0.50, AST 20, ALT 28, Alkaline Phosphatase 113, Troponin I High Sens 17, Total Protein 7.3, Albumin 3.6, Globulin 3.7, Albumin/Globulin Ratio 1.0 01/05/21 05:50: Lactic Acid 1.4 01/05/21 05:50: Blood Type O POSITIVE, Antibody Screen NEGATIVE Radiology Impression Abdomen/Pelvis CT 01/05/21 05:46 IMPRESSION: Descending colon and sigmoid diverticulosis without evidence of diverticulitis. Stable metastatic bone lesions without evidence of pathologic fracture. Electronically Signed: Tadeo Byrne MD at 7:49 EDT Tel , Service support , Assessment & Plan Assessment/Plan (1) Acute GI bleeding: PLAN: 1. Acute GI bleed, unclear source: Patient is being admitted in PCU on hydrology teacher. H&H every 6 hourly for 2 times. GI is consulted. Started on Protonix for suspicion of upper GI bleed as patient is on meloxicam might have rapid upper GI bleed. IV fluid Ringer lactate. 2. Generalized primary osteoarthritis, recurrent fall, generalized weakness: PT OT ordered. 3. Depression and dementia, MARIAJOSE: 4. CA prostate on ADT and history of colon cancer: XTANDI is continued does not have any GI bleed side effect. 5. VTE prophylaxis: Bilateral SCDs. Pharmacological prophylaxis is contraindicated in view of active GI. Living will/advanced directive/end of life care: Patient does have living will or advanced directive. His son is POA and I talked to him near the bedside. After discussion of benefits/risks procedures involved with full code, DNR CC arrest and DNR CC, the patient opted for DNR-CC Arrest with no intubation Patient does not want artificial life support including intubation, tube feed, ventilator and/chest compression, central venous catheter, vasopressor and DC shock if needed Total time spent in [id number] encounter in discussion of advanced directive 16 minutes. Charges/Coding Visit Charges Inpatient E&M: 70162 Init Hosp L3 Procedures Hospitalists Procedures: 11427 Advncd Care Plan 30 Min
[2021-01-05 08:33] LABS: Magnesium 2.2 mg/dL (1.6-2.6)
[2021-01-05] MEDS: Lactated Ringers 1,000 ML 100 ML IV (09:58)
[2021-01-05] MEDS: Sertraline 50 MG Tablet PO (11:14)
--- NOTE | 2021-01-05 14:07 | NURSING ---
called hubert to question Xtandi order on Med list. Allison, nurse, states that it was clarified a few days ago but must not have been updated. She faxed over new medication list and it is placed on paper chart.
[2021-01-05 14:20] LABS: Hematocrit 35.9 % (40-54); Hemoglobin 11.7 g/dL (13.0-16.5)
--- NOTE | 2021-01-05 17:29 | CON.PCM.GI_ITS ---
HPI Consult Data Date of Consult: 01/05/21 HPI Narrative HPI Narrative: JOSÉ HERNÁNDEZ, is a 80 M who present patient is in a memory unit of long-term care facility and the history is limited due to dementia. He has history of colon cancer s/p sigmoid resection with primary anastomosis as per the patient's son is at the bedside. He does not know if he got chemotherapy or radiation. In the interim since his colon cancer he developed kidney cancer status post nephrectomy and metastatic prostate cancer on androgen cristiano therapy. He is known to have bony metastasis from his metastatic prostate cancer. At the long-term memory facility . He does state that he went to the bathroom and there was just blood. He cannot really elaborate a lot further than that. He thinks that he has never had this before. He denies having abdominal pain. He denies being on blood thinner but he says he has had no medical problems and is on no meds but is prescribed meds. He also denies surgery but he has a surgical scar. Review of his chart shows no blood thinners. However he is on enzalutamide as well as meloxicam. CT scan of the abdomen pelvis does show extensive diverticular disease and stable bony metastasis from his prostate cancer. [facility] Medical History Anxiety Dementia Depression MARIAJOSE (generalized anxiety disorder) Hyperlipidemia Osteoarthritis Prostate neoplasm Home Medications diphenhydramine-acetaminophen [Acetaminophen PM] 1 tab PO QHS 11/07/20 [History Last Taken Unknown] enzalutamide [Xtandi] 160 mg PO DAILY 11/07/20 [History Last Taken Unknown] meloxicam 15 mg PO DAILY 11/07/20 [History Last Taken Unknown] sertraline 50 mg PO DAILY 11/07/20 [History Last Taken Unknown] acetaminophen 1,000 mg PO Q8H PRN 01/05/21 [History Last Taken Unknown] menthol [Biofreeze (menthol)] 1 applic TOPICAL 4X/DAY PRN PRN 01/05/21 [History Last Taken Unknown] Allergy/AdvReac Type Severity Reaction Status Date / Time No Known Allergies Allergy Verified 01/05/21 05:41 Social History Smoking Status: Never smoker substance use type: does not use ROS Review of Systems ROS Unobtainable: other Constitutional Constitutional: Denies fatigue, fever(s), poor appetite, weight gain or weight loss ENT HEENT: Denies mouth lesions Cardiovascular Cardiovascular: Denies abdominal bloating, abdominal edema or abdominal pain Respiratory/Chest Respiratory/Chest: Denies change in mental status, change in phlegm color, chest congestion or chest tightness Gastrointestinal Gastrointestinal: Denies belching, bloating, change in bowel habits, change in stool character, chewing difficulty, coffee ground emesis, constipation, cramping, diarrhea, dyspepsia, dysphagia, early satiety, excessive flatus, fecal incontinence, heartburn, hematemesis, hematochezia, hemorrhoids, loose stools, melena, nausea, odynophagia, rectal bleeding, tenesmus, vomiting or weight changes Genitourinary Genitourinary: Denies abdominal discomfort, burning urination or itching Musculoskeletal Musculoskeletal: Reports as per HPI; Denies muscle weakness or myalgias Integumentary Integumentary: Denies jaundice Neurologic Neurologic: Denies lack of coordination or weakness Psychiatric Psychiatric: Denies confusion, depression, memory loss, mood swings, paranoia or suicidal ideation Endocrine Endocrinology: Denies systems reviewed and no addt'l complaints, except as documented Hematologic/Lymphatic Hematologic/Lymphatic: Denies anemia, easy bleeding, easy bruising or lymphadenopathy Allergic/Immunologic Allergic/Immunologic: Denies systems reviewed and no addt'l complaints, except as documented Physical Exam Const alert General Appearance: cooperative Orientation / Consciousness: oriented to person HEENT hearing grossly normal bilaterally Head and Scalp: normal to inspection Face and Sinus: face symmetric Nose: external nose normal Mouth: oral and palatal mucosa normal Eyes conjunctivae normal General Eye: normal appearance of both eyes Neck full ROM General: normal visual inspection Lymph Lymphatic: no lymphadenopathy noted Chest inspection of chest normal and palpation of chest normal Chest: symmetrical chest wall rise Resp normal respiratory effort Effort and Inspection: able to speak in complete sentences Cardio regular rate GI non-distended Percussion: normal to percussion Rectal Exam: deferred Neuro Speech: speech normal Gait (Neuro): normal gait Lab / Micro Data Result Diagrams: 01/05/21 14:14 01/05/21 05:50 Labs: Laboratory Results - last 24 hr 01/05/21 05:50: WBC 6.4, RBC 4.06 L, Hgb 12.4 L, Hct 38.0 L, MCV 93.6, MCH 30.5, MCHC 32.6, RDW Std Deviation 46.8 H, RDW Coeff of [place] 13.6, Plt Count 250, MPV 10.3, Immature Gran % (Auto) 0.300, Neut % (Auto) 78.5 H, Lymph % (Auto) 12.1 L, [place] % (Auto) 8.3, Eos % (Auto) 0.6, Baso % (Auto) 0.2, Absolute Neuts (auto) 5.0, Absolute Lymphs (auto) 0.77 L, Nucleated RBC % 0 01/05/21 05:50: PT 13.9, INR 1.1, APTT 29.3 01/05/21 05:50: Sodium 140, Potassium 4.1, Chloride 105, Carbon Dioxide 27.0, Anion Gap 8, BUN 24 H, Creatinine 1.18, Estim Creat Clear Calc 49.11, Est GFR (MDRD) Af Amer 76, Est GFR (MDRD) Non-Af 63, BUN/Creatinine Ratio 20.3 H, Glucose 100, Calcium 9.2, Total Bilirubin 0.50, AST 20, ALT 28, Alkaline Phosphatase 113, Troponin I High Sens 17, Total Protein 7.3, Albumin 3.6, Globulin 3.7, Albumin/Globulin Ratio 1.0 01/05/21 05:50: Lactic Acid 1.4 01/05/21 05:50: Blood Type O POSITIVE, Antibody Screen NEGATIVE 01/05/21 05:50: Magnesium 2.2 01/05/21 14:14: Hgb 11.7 L, Hct 35.9 L Micro: Microbiology 01/05/21 11:35 Stool Stool Occult Blood (LILY) - Final Occult Blood Positive Radiology Impression Abdomen/Pelvis CT 01/05/21 05:46 IMPRESSION: Descending colon and sigmoid diverticulosis without evidence of diverticulitis. Stable metastatic bone lesions without evidence of pathologic fracture. Electronically Signed: Tadeo Byrne MD at 7:49 EDT Tel , Service support , Assessment & Plan Assessment/Plan (1) Acute GI bleeding: PLAN: The differential diagnosis for an acute GI bleed in the setting of meloxicam therapy and an elevated BUN/creatinine ratio is an upper GI bleed rapid transit. Also noted differential diagnosis is recurrent colon cancer and possibly diverticular bleed. At this time his hemoglobin seems to be stable and his family do not wish for him to undergo a colonoscopy at this time. However if it does drop they would be okay with him undergoing a colonoscopy to find out the origin of his lower GI bleeding. For now we will just pay patient on a clear liquid diet. And monitor his hemoglobin every every 6 to every 8. Hold all anticoagulation and antiplatelet therapy. Charges/Coding Visit Charges Inpatient E&M: 16407 Init Hosp L2
[2021-01-05 19:01] LABS: Hematocrit 33.2 % (40-54); Hemoglobin 10.9 g/dL (13.0-16.5)
[2021-01-06] VITALS (7 sets, daily range): BP systolic 128–160; BP diastolic 88–98; PULSE 79–100; RESP 18; TEMP 36.8–37; O2SAT 93–96
[2021-01-06 06:50] LABS: Absolute Lymphocyte Count 0.54 X10^3/uL (0.83-4.51); Absolute Neutrophil Count 4.6 X10^3/uL (2.0-7.7); Basophil# 0.03 X10^3/uL; Basophil% 0.5 % (0-1); Eosinophil# 0.03 X10^3/uL; Eosinophils% 0.5 % (0-5); Hemoglobin 11.4 g/dL (13.0-16.5); Lymphocyte # 0.54 X10^3/ul (0.83-4.51); Lymphocyte % 9.5 % (19-41); Mean Corp Hgb Conc 32.6 g/dL (32-36); Mean Corpuscular Hgb 30.4 pg (27.0-32.0); Mean Corpuscular Volume 93.3 fL (80-94); Mean Platelet Vol. 10.3 fl (6.2-12.0); Monocyte# 0.44 X10^3/uL; Monocyte% 7.8 % (0-10); NRBC Flagged by Analyzer 0 % (0-5); Neutrophil % 81.3 % (47-70); POSITIVE DIFFERENTIAL YES; Platelet Count 231 K/mm3 (150-450); RBC Distribution Width CV 13.3 % (11.6-14.6); RBC Distribution Width SD 45.8 fl (35.1-43.9); Red Blood Count 3.75 M/mm3 (4.6-6.2); White Blood Count 5.7 K/mm3 (4.4-11.0)
[2021-01-06 07:01] LABS: Differential Indicated SCAN CRITERIA MET
[2021-01-06 07:21] LABS: Anion Gap 9 (5-15); BUN 16 mg/dL (7-18); BUN/Creat Ratio 15.7 RATIO (10-20); Calcium,Total 9.5 mg/dL (8.5-10.1); Chloride 102 mmol/L (98-107); Creatinine, Serum 1.02 mg/dL (0.70-1.30); EST Glomerular Filtration Rate 75 mL/min (>60); Est Glom Filt Rate - Afr Amer 90 mL/min (>60); Estimated Creatinine Clearance 56.81 ml/min; Glucose 101 mg/dL (74-106); Phosphorus 3.1 mg/dL (2.5-4.9); Sodium Level 136 mmol/L (136-145)
[2021-01-06 07:26] LABS: Differential Comment SCANNED
[2021-01-06] MEDS: ENZALUTAMIDE 40 MG CAPSULE 160 MG PO (09:38)
[2021-01-06] MEDS: Sertraline 50 MG Tablet PO (09:38)
[2021-01-06] MEDS: 0.9% Saline Lock 10 ML Syringe IV (09:41)
--- NOTE | 2021-01-06 10:30 | PCS.PANDOC ---
PANDEMIC DOCUMENTATION INITIATED: Date: 01/05/2021 Time: 945
--- NOTE | 2021-01-06 11:00 | DS.PCM_ITS ---
Providers Date of Admission: 01/05/21 Date of Discharge: 01/06/21 Primary Care Physician: Dr. Roberto Alva MD Consultations 01/05/21 09:30 Consult: Gastroenterology Routine Consulting Provider: [facility] Reason for Consult: GI bleed. History of colon cancer and prostate cancer. EMERGENT Consult: No MD Notified: Yes Date Notified: 01/05/21 Time Notified: 09:32 Method of Notification: Verbal Comments:: Notified by ED physician Dr. Guadarrama Reason For Visit: LOWER GI BLEED Diagnosis Discharge Diagnosis (1) Acute GI bleeding: Status: Acute Code(s): K92.2 - Gastrointestinal hemorrhage, unspecified Plan: Final diagnosis: #1 acute GI bleed-etiology unclear #2 generalized osteoarthritis #3 dementia #4 chronic depression #5 prostate cancer Medications at Discharge Home Medications Xtandi 160 mg PO DAILY 11/07/20 diphenhydramine-acetaminophen [Acetaminophen PM] 1 tab PO QHS 11/07/20 sertraline 50 mg PO DAILY 11/07/20 Biofreeze (menthol) 1 applic TOPICAL 4X/DAY PRN PRN 01/05/21 acetaminophen 1,000 mg PO Q8H PRN 01/05/21 pantoprazole [Protonix] 40 mg PO DAILY #30 tab 01/06/21 Hospital Course Operations None Procedures None Summary of Care Provided Minutes Spent on Discharge: 31 Hospital Course: This 80-year-old white male was seen in the emergency room at [facility] after being sent in from a long-term care facility due to blood in his bowel movement. Patient cannot give a history due to dementia, patient denied having any abdominal pain. Work-up in the emergency room showed the patient's hemoglobin to be 12.4, CT of the abdomen and pelvis showed descending colon and sigmoid diverticulosis, there was noted to be metastatic bone lesions from the patient's prostate cancer. Patient was admitted to PCU, he was seen in consultation by gastroenterology who talked with the patient's POA, family did not wish patient to undergo any testing and his hemoglobin was monitored during his hospitalization and remained relatively stable, he did not require any blood transfusion. On 01/06/2021, patient was seen and examined: On examination he was in no di stress, patient was confused. Vital signs as documented. Skin warm and dry and without overt rashes. Neck without JVD, neck was supple, trachea midline, thyroid was normal. Lungs clear bilaterally, normal air movement was noted. Heart exam notable for regular rhythm, normal sounds and absence of murmurs, rubs or gallops. Abdomen unremarkable and without evidence of organomegaly, masses, or abdominal aortic enlargement. Bowel sounds are present, abdomen is not distended. Extremities nonedematous, no cyanosis was noted, no clubbing was noted. Neuro: Cranial nerves II through XII are grossly intact, no focal motor deficits were noted, sensation to light touch and pinprick intact, motor exam 5/5 throughout. Psych: Patient is alert and confused but not agitated Patient was discharged back to his long-term care facility in stable condition on 01/06/2021 Weight / BMI Weight Weight: 81.8 kg Body Mass Index (BMI) 25.4 ABG / Lab / Microbiology Data Result Diagrams: 01/06/21 06:30 01/06/21 06:30 Microbiology: Microbiology 01/05/21 11:35 Stool Stool Occult Blood (LILY) - Final Occult Blood Positive D/C Instructions Discharge Diet: No restrictions Weight Bearing Status: Full weight bearing Meaningful Use Info Meaningful Use Diagnoses (Choose all that apply): None applicable Discharge Plan Admission Admit Date/Time: 01/05/21 08:15 Primary Reason for Your Visit: GI bleed Attending Provider: Tyler Gonzales Primary Care Provider: Roberto Alva Instructions Additional Instructions / Restrictions: Patient Problems: Altered Health Status related to Hospitalization Patient Goals: *Optimal Level of Health *Keep Appointments *Medication Compliance *Remain Safe Discharge Orders/Prescriptions Prescriptions: New pantoprazole [Protonix] 40 mg tablet,delayed release (DR/EC) 40 mg PO DAILY Qty: 30 RF: 0 Continued diphenhydramine-acetaminophen [Acetaminophen PM] 25-500 mg Tablet 1 tab PO QHS RF: 0 sertraline 50 mg tablet 50 mg PO DAILY RF: 0 Xtandi 40 mg Capsule 160 mg PO DAILY RF: 0 acetaminophen 500 mg Tablet 1,000 mg PO Q8H PRN (Reason: Pain) RF: 0 Biofreeze (menthol) 4 % Gel 1 applic TOPICAL 4X/DAY PRN PRN (Reason: Pain) RF: 0 Discontinued meloxicam 15 mg Tablet 15 mg PO DAILY RF: 0 Referrals / Follow Up: Roberto Alva MD [Primary Care Provider] - 01/13/21 1:30 pm Disposition Disposition (needs filled in before D/C Order can be placed): Assisted Living Charges/Coding Visit Charges Inpatient E&M: 62313 Disch Hosp
--- NOTE | 2021-01-06 11:42 | PCM.DC ---
Discharge Instructions Diet Discharge Diet: No restrictions Activity Discharge Activity: Return to Normal Activity Weight Bearing Status: Full weight bearing Follow Up Care Test Results: Test results from this visit will be discussed in further detail at your follow-up appointment, if applicable. Discharge Plan Admission Admit Date/Time: 01/05/21 08:15 Primary Reason for Your Visit: GI bleed Attending Provider: Tyler Gonzales Primary Care Provider: Roberto Alva Discharge Orders/Prescriptions Prescriptions: New pantoprazole [Protonix] 40 mg tablet,delayed release (DR/EC) 40 mg PO DAILY Qty: 30 RF: 0 Continued diphenhydramine-acetaminophen [Acetaminophen PM] 25-500 mg Tablet 1 tab PO QHS RF: 0 sertraline 50 mg tablet 50 mg PO DAILY RF: 0 Xtandi 40 mg Capsule 160 mg PO DAILY RF: 0 acetaminophen 500 mg Tablet 1,000 mg PO Q8H PRN (Reason: Pain) RF: 0 Biofreeze (menthol) 4 % Gel 1 applic TOPICAL 4X/DAY PRN PRN (Reason: Pain) RF: 0 Discontinued meloxicam 15 mg Tablet 15 mg PO DAILY RF: 0 Referrals / Follow Up: Roberto Alva MD [Primary Care Provider] - Disposition Disposition (needs filled in before D/C Order can be placed): Assisted Living
--- NOTE | 2021-01-06 11:57 | CASEMGMT ---
Patient is ready for discharge back to [facility]. FOREST called Tianna DempseyCong at [facility] and let her know patient will be returning today. SW will fax H&P and D/C instructions. Physician said patient's son told him he will transport patient back to [facility]. Plan: d/c back to [facility]. Patient's son transported via private vehicle. Marian GRIMM
--- NOTE | 2021-01-06 12:16 | PHA.DC.MR ---
Pharmacy Service has performed discharge medication reconciliation for this patient. The patient's discharge medication list was reviewed for discrepancies and discrepancies were resolved. Home Medications Xtandi 160 mg PO DAILY 11/07/20 diphenhydramine-acetaminophen [Acetaminophen PM] 1 tab PO QHS 11/07/20 sertraline 50 mg PO DAILY 11/07/20 Biofreeze (menthol) 1 applic TOPICAL 4X/DAY PRN PRN 01/05/21 acetaminophen 1,000 mg PO Q8H PRN 01/05/21 pantoprazole [Protonix] 40 mg PO DAILY #30 tab 01/06/21
--- NOTE | 2021-01-06 13:53 | NURSING ---
Report called to Amanda at [facility].
== END 2021-01-06 14:00 | disposition home or self-care (01) | DRG 378 ==
LOC: ED 06:16 → PCU 08:45
PROVIDERS: Admitting Provider Internal Medicine; Emergency Provider Emergency Medicine; PCP Family Medicine; Visit Provider Internal Medicine
DX: K92.2 Gastrointestinal hemorrhage, unspecified (principal); C79.51 Secondary malignant neoplasm of bone; C61 Malignant neoplasm of prostate; K57.30 Diverticulosis of large intestine without perforation or abscess without bleeding; E78.5 Hyperlipidemia, unspecified; F03.90 Unspecified dementia, unspecified severity, without behavioral disturbance, psychotic disturbance, mood disturbance, and anxiety; F32.A Depression, unspecified; R29.6 Repeated falls; F41.1 Generalized anxiety disorder; M19.90 Unspecified osteoarthritis, unspecified site; Z90.5 Acquired absence of kidney; Z85.038 Personal history of other malignant neoplasm of large intestine; Z79.899 Other long term (current) drug therapy; Z90.49 Acquired absence of other specified parts of digestive tract
CPT/HCPCS: 36415; 74177; 80048; 80053; 82274; 83605; 83735; 84100; 84484; 85014; 85018; 85025; 85610; 85730; 86850; 86900; 86901; 93005; 99285; J7120; Q9967; A4216

== ENCOUNTER → 2021-03-21 08:00 | Outpatient (REF) | payer MEDICARE, OTHER, SELFPAY ==
[2021-03-22 07:58] LABS: Mucous, Urine 0 SEEN /hpf (<or=2+); Red Blood Cells-Urine 0 SEEN /hpf (0-5); Squamous Epithelial Cells - UA 0 SEEN /hpf (0-5); White Blood Cells 0 SEEN /hpf (0-5)
[2021-03-22 08:28] LABS: Color, Urine Yellow (Yellow); Glucose, Dipstick Normal (Normal); Ketone-Dipstick Negative (Negative); Leukocyte Esterase-Dipstick Negative /ul (Negative); Nitrite-Dipstick Negative (Negative); Occult Blood-Urine Negative /ul (Negative); Protein-Dipstick 30 mg/dl (Negative); Specific Gravity, Urine 1.025 (1.002-1.030); Urine Bilirubin Dipstick Negative (Negative); Urine Clarity Sl. Cloudy (Clear); Urine Urobilinogen Normal (Normal)
[2021-03-22 08:37] LABS: Amorphous Sediment 2+; Bacteria 2+ /hpf (None Seen); Calcium Oxalate Crystals Ur 1+ /hpf (<or=2+)
== END ==
LOC: OLS.BROOKB 08:00
PROVIDERS: PCP Family Medicine; Referring Provider Family Medicine; Visit Provider Family Medicine
DX: N39.0 Urinary tract infection, site not specified (principal); R53.83 Other fatigue
CPT/HCPCS: 81001; 87086

== ENCOUNTER 2021-03-28 09:17 | Emergency (ER) | payer MEDICARE, OTHER, SELFPAY ==
[2021-03-28 09:18] VITALS: BP 162/83; PULSE 81; RESP 17; TEMP 36.6; BMI 27.9
[2021-03-28 09:21] VITALS: BP 162/86; PULSE 82; RESP 19; O2SAT 94
--- NOTE | 2021-03-28 10:17 | CT_ITS ---
STUDY: CT CERVICAL SPINE WITHOUT CONTRAST REASON FOR EXAM: Male, 81 years old. Falls RADIATION DOSAGE (If Supplied By Facility): CTDIvol = ( 17.07 ) mGy, DLP = ( 329.22 ) mGycm TECHNIQUE: High resolution transaxial imaging was performed without contrast material. Sagittal and coronal images were reconstructed. Individualized dose optimization techniques were used for this CT. COMPARISON: None FINDINGS: Normal craniovertebral junction. Normal anterior atlantoaxial articulation. Normal odontoid process. Normal cervical lordosis. Normal vertebral bodies and posterior osseous elements. C2-3: Degenerative spurring at the endplates. Normal disc height and morphology. Mild spurring protruding into the central canal. Facet hypertrophy and uncovertebral spur narrowing the intervertebral neuroforamina, right more than left. C3-4: Status post anterior surgical fusion. Mild spurring protruding into the central canal. Uncovertebral spurring narrowing the intervertebral neuroforamina, left more than right. C4-5: Status post anterior surgical fusion. Mild spurring protruding into the central canal. Uncovertebral spurring slightly narrowing the intervertebral neuroforamina, left more than right. C5-6: Status post anterior surgical fusion. Normal central canal. Uncovertebral spurring narrowing the left intervertebral neural foramen. C6-7: Status post anterior surgical fusion. Posterior spurring protruding into the central canal. Uncovertebral spurring narrowing the left intervertebral neural foramen. C7-T1: Degenerative spurring at the endplates. Slightly narrowed disc height. Normal central canal. Uncovertebral spurring narrowing the intervertebral neuroforamina. Normal visualized soft tissue structures. CT/Spine Cervical without Contras IMPRESSION: Degenerative and post surgical changes of the cervical spine. Electronically Signed: Raul Borrero DO at 11:14 EST Tel [phone], Service support ,
--- NOTE | 2021-03-28 10:17 | CT_ITS ---
STUDY: CT BRAIN WITHOUT CONTRAST REASON FOR EXAM: Male, 81 years old. Headache RADIATION DOSAGE (If Supplied By Facility): CTDIvol = ( 44.99 ) mGy, DLP = ( 779.24 ) mGycm TECHNIQUE: Transaxial CT imaging of the brain was performed without administration of intravenous contrast material. Individualized dose optimization techniques were used for this CT. COMPARISON: No relevant priors. FINDINGS: Normal soft tissue structures. Normal calvarium. Normal size ventricles and extra-axial spaces for the patient''s age. Mild white matter microangiopathic ischemic changes of the cerebral hemispheres. Normal basal ganglia and thalami. Normal brainstem. Normal cerebellum. There is no intracranial hemorrhage. There are no findings of an acute ischemic infarction. Normal visualized paranasal sinuses. CT/Brain/Head without Contrast IMPRESSION: No acute intracranial pathology of the brain. Electronically Signed: Raul Borrero DO at 10:59 EST Tel [phone], Service support ,
--- NOTE | 2021-03-28 10:18 | EDS_ITS ---
HPI HPI - Fall History of Present Illness Chief Complaint: Fall Narrative Narrative: 81-year-old male with chronic dizziness and falls presenting with head injury. Patient apparently fell overnight at the assisted. Patient has superficial abrasions to the right forehead which is from a previous fall. He has a laceration to the right ear which is new. Today patient is not on blood thinners. Patient denies any neck pain. Patient has mild headache. Kirsten romo's son is in the room and states he is chronically dizzy and chronically falling and there is nothing new except for the assisted has a requirement that the patient be seen if he falls and hits his head. Patient denies any chest pain, palpitations, shortness of breath. Patient denies any fever, chills. Denies nausea, vomiting. He denies visual changes. [facility] Medical History Anxiety Dementia Depression MARIAJOSE (generalized anxiety disorder) Hyperlipidemia Osteoarthritis Prostate neoplasm Home Medications Xtandi 160 mg PO DAILY 11/07/20 [History Last Taken Unknown] diphenhydramine-acetaminophen [Acetaminophen PM] 1 tab PO QHS 11/07/20 [History Last Taken Unknown] sertraline 50 mg PO DAILY 11/07/20 [History Last Taken Unknown] Biofreeze (menthol) 1 applic TOPICAL 4X/DAY PRN PRN 01/05/21 [History Last Taken Unknown] acetaminophen 1,000 mg PO Q8H PRN 01/05/21 [History Last Taken Unknown] pantoprazole [Protonix] 40 mg PO DAILY #30 tab 01/06/21 [Rx Last Taken Unknown] Allergy/AdvReac Type Severity Reaction Status Date / Time No Known Allergies Allergy Verified 01/05/21 05:41 Social History Smoking Status: Never smoker substance use type: does not use ROS ROS ED Constitutional Constitutional ED: Denies chills or fever(s) Eyes Eyes: Denies blurry vision or change in vision ENT ENT ED: Denies ear pain or sore throat Cardiovascular Cardiovascular: Denies chest pain, palpitations or racing heartbeat Respiratory/Chest Respiratory/Chest: Denies cough, dyspnea or sputum Gastrointestinal Gastrointestinal: Denies abdominal pain, constipation, diarrhea, nausea or vomiting Genitourinary Genitourinary ED: Denies dysuria, hematuria or urinary frequency Musculoskeletal Musculoskeletal: Denies arthralgias, myalgias or neck pain Integumentary Reports other Details: Contusion to right forehead without laceration. There is a superficial laceration to the right earlobe which is new ; Denies abscess Neurologic Neurologic: Denies headache(s), paresthesias or weakness Psychiatric Psychiatric: Denies anxiety, depression, suicidal ideation or suicidal thoughts Endocrine Endocrinology: Denies polydipsia or polyuria EXAM Physical Exam Const Vital Signs: 03/28/21 09:18 03/28/21 09:21 03/28/21 11:21 Temperature 97.8 F Temperature Source Temporal Pulse Rate 81 82 74 Respiratory Rate 17 19 H 14 Respiratory Effort Normal Blood Pressure 162/83 H 162/86 H 151/89 H Blood Pressure Mean 109 111 109 Pulse Ox 94 96 Oxygen Delivery Method Room Air Room Air 03/28/21 12:28 Temperature Temperature Source Pulse Rate 68 Respiratory Rate 17 Respiratory Effort Blood Pressure 149/72 H Blood Pressure Mean Pulse Ox 95 Oxygen Delivery Method Positive well nourished General Appearance ED: NAD HEENT Reports normocephalic and TM's clear Tympanic Membrane ED: Yes TM's clear Eyes PERRL and EOMs intact bilaterally Neck full ROM Chest Wall inspection of chest normal and palpation of chest normal Resp normal respiratory effort and clear to auscultation bilaterally Cardio regular rate and regular rhythm Back/Spine Cervical Spine: Negative for cervical spine tenderness Thoracic Spine / Upper Back: Negative for thoracic spinal tenderness Lumbar Spine / Lower Back: Negative for lumbar spinal tenderness Psych mental status grossly normal and thought process normal Skin Skin Narrative: Superficial laceration approximately 1 cm of the right earlobe with good approximation of the wound margins. Contusion/abrasion to right side of forehead. MDM MDM MDM Narrative Medical decision making narrative: 81-year-old male presenting with a fall. His son reports that he does fall frequently. He has chronic dizziness and patient had recently fallen and hit his head and has superficial contusions of the forehead. Now he has a superficial laceration to the right ear. Patient did not reportedly lose consciousness. Is not on blood thinners. Patient son wants him to be evaluated to make sure he is not dehydrated. His CBC and BMP are unremarkable with exception of a potassium of 3.4. I did obtain a CT of the brain and cervical spine and both of these are interpreted as normal by the radiologist and reviewed by myself. Patient's ear laceration does not require any suturing as it is well approximated and not currently bleeding. This will be cleaned and dressed. Discussed results with patient's son and he will be discharged back to his facility. Impression: 1. Falls 2. Right ear laceration 3. Closed head injury Lab Data Attestation: I reviewed the patient's lab results. Labs: Laboratory Results - last 24 hr 03/28/21 03/28/21 09:49 09:49 WBC 9.1 RBC 3.99 L Hgb 11.4 L Hct 36.3 L MCV 91.0 MCH 28.6 MCHC 31.4 L RDW Std Deviation 44.9 H RDW Coeff of [place] 13.4 Plt Count 288 MPV 10.5 Immature Gran % (Auto) 0.300 Neut % (Auto) 82.2 H Lymph % (Auto) 7.9 L [place] % (Auto) 9.1 Eos % (Auto) 0.3 Baso % (Auto) 0.2 Absolute Neuts (auto) 7.5 Absolute Lymphs (auto) 0.72 L Nucleated RBC % 0 Sodium 144 Potassium 3.4 L Chloride 110 H Carbon Dioxide 29.0 Anion Gap 5 BUN 16 Creatinine 0.92 Estim Creat Clear Calc 61.96 Est GFR (MDRD) Af Amer 102 Est GFR (MDRD) Non-Af 84 BUN/Creatinine Ratio 17.4 Glucose 76 Calcium 9.6 Radiography Diagnostic Testing: Clinical Impression(s) from Imaging Studies Brain CT 03/28/21 10:17 IMPRESSION: No acute intracranial pathology of the brain. Electronically Signed: Raul Borrero DO at 10:59 EST Tel [phone], Service support , Cervical Spine CT 03/28/21 10:17 IMPRESSION: Degenerative and post surgical changes of the cervical spine. Electronically Signed: Raul Borrero DO at 11:14 EST Tel [phone], Service support , Discharge Plan Triage Chief Complaint: Fall ED Provider: Uriel Redman Dx/Rx/DC Orders Instructions: ED Fall with Uncertain Cause, ED Laceration Small or ... Prescriptions: No Action diphenhydramine-acetaminophen [Acetaminophen PM] 25-500 mg Tablet 1 tab PO QHS RF: 0 sertraline 50 mg tablet 50 mg PO DAILY RF: 0 Xtandi 40 mg Capsule 160 mg PO DAILY RF: 0 acetaminophen 500 mg Tablet 1,000 mg PO Q8H PRN (Reason: Pain) RF: 0 Biofreeze (menthol) 4 % Gel 1 applic TOPICAL 4X/DAY PRN PRN (Reason: Pain) RF: 0 pantoprazole [Protonix] 40 mg tablet,delayed release (DR/EC) 40 mg PO DAILY Qty: 30 RF: 0 Primary Care Provider: Roberto Alva Referrals: Roberto Alva MD [Primary Care Provider] - Disposition Disposition: Home, Self Care Discharge Date/Time: 03/28/21 12:29
[2021-03-28 10:20] LABS: Absolute Lymphocyte Count 0.72 X10^3/uL (0.83-4.51); Absolute Neutrophil Count 7.5 X10^3/uL (2.0-7.7); Basophil# 0.02 X10^3/uL; Basophil% 0.2 % (0-1); Eosinophil# 0.03 X10^3/uL; Eosinophils% 0.3 % (0-5); Hematocrit 36.3 % (40-54); Hemoglobin 11.4 g/dL (13.0-16.5); Lymphocyte # 0.72 X10^3/ul (0.83-4.51); Lymphocyte % 7.9 % (19-41); Mean Corp Hgb Conc 31.4 g/dL (32-36); Mean Corpuscular Hgb 28.6 pg (27.0-32.0); Mean Platelet Vol. 10.5 fl (6.2-12.0); Monocyte# 0.83 X10^3/uL; Monocyte% 9.1 % (0-10); NRBC Flagged by Analyzer 0 % (0-5); Neutrophil # 7.51 X10^3/uL (2.7-7.7); Neutrophil % 82.2 % (47-70); Platelet Count 288 K/mm3 (150-450); RBC Distribution Width CV 13.4 % (11.6-14.6); RBC Distribution Width SD 44.9 fl (35.1-43.9); Red Blood Count 3.99 M/mm3 (4.6-6.2); White Blood Count 9.1 K/mm3 (4.4-11.0)
[2021-03-28 10:30] LABS: Anion Gap 5 (5-15); BUN 16 mg/dL (7-18); BUN/Creat Ratio 17.4 RATIO (10-20); Calcium,Total 9.6 mg/dL (8.5-10.1); Chloride 110 mmol/L (98-107); Creatinine, Serum 0.92 mg/dL (0.70-1.30); EST Glomerular Filtration Rate 84 mL/min (>60); Est Glom Filt Rate - Afr Amer 102 mL/min (>60); Estimated Creatinine Clearance 61.96 ml/min; Glucose 76 mg/dL (74-106); Potassium 3.4 mmol/L (3.5-5.1); Sodium Level 144 mmol/L (136-145)
[2021-03-28 11:21] VITALS: BP 151/89; PULSE 74; RESP 14; O2SAT 96
[2021-03-28 12:28] VITALS: BP 149/72; PULSE 68; RESP 17; O2SAT 95
== END 2021-03-28 12:29 | disposition home or self-care (01) ==
PROVIDERS: Emergency Provider Student in an Organized Health Care Education/Training Program; PCP Family Medicine; Visit Provider Student in an Organized Health Care Education/Training Program
DX: S01.311A Laceration without foreign body of right ear, initial encounter (principal); F03.90 Unspecified dementia, unspecified severity, without behavioral disturbance, psychotic disturbance, mood disturbance, and anxiety; S00.83XA Contusion of other part of head, initial encounter; W19.XXXA Unspecified fall, initial encounter; Y93.9 Activity, unspecified; Y92.129 Unspecified place in nursing home as the place of occurrence of the external cause; E78.5 Hyperlipidemia, unspecified; F41.9 Anxiety disorder, unspecified; F32.A Depression, unspecified; M19.90 Unspecified osteoarthritis, unspecified site; Z79.899 Other long term (current) drug therapy; Z91.81 History of falling; R42 Dizziness and giddiness
CPT/HCPCS: 70450; 72125; 80048; 85025; 99284; A4216

== ENCOUNTER 2021-03-30 11:32 | Outpatient (CLI) | payer MEDICARE, OTHER, SELFPAY ==
[2021-03-30 12:33] LABS: PSA,Total- Diagnostic 0.06 ng/mL (0.0-4.0)
== END 2021-03-30 23:59 | disposition short-term general hospital (02) ==
LOC: LAB 11:34
PROVIDERS: PCP Family Medicine; Visit Provider Urology
DX: Z85.46 Personal history of malignant neoplasm of prostate (principal)
CPT/HCPCS: 36415; 84153